=== PATIENT | female | born 1945 | race Caucasian/White ===

== ENCOUNTER → 2017-01-03 | Outpatient (CLI) | payer MEDICARE, OTHER | END | disposition home or self-care (01) | LOC: LAB.O 09:35 | PROVIDERS: ATTEND Nurse Practitioner Family | DX: I10 Essential (primary) hypertension (principal); I95.1 Orthostatic hypotension ==

== ENCOUNTER → 2017-05-07 | Outpatient (CLI) | payer MEDICARE, OTHER ==
[~2017-05-07] MED LIST: ALBUTEROL SULFATE 2.5 MG/3 ML VIAL NEB ONE
== END | disposition home or self-care (01) ==
LOC: RESP 13:49
PROVIDERS: ATTEND Nurse Practitioner Family
DX: J44.9 Chronic obstructive pulmonary disease, unspecified (principal)
CPT/HCPCS: 94060; J7611

== ENCOUNTER 2017-11-10 11:07 | Inpatient (IN) | payer MEDICARE, OTHER ==
[2017-11-10] MEDS ORDERED: LIDOCAINE 1% 50 ML VIAL INJ ONE (11:25)
[2017-11-10] MEDS ORDERED: POVIDONE IODINE 10 % 15 ML UD TOP ONE (11:34)
[2017-11-10] MEDS ORDERED: SULFA/TRIMETH 800/160 (DS) TAB 1 EA TAB PO ONE (12:07)
[2017-11-10] MEDS ORDERED: TETANUS,DIPHTHERIA,PERTUSSIS 1 EA SYG IM ONE (12:07)
[2017-11-10] MEDS ORDERED: SODIUM CHLORIDE 0.9% 1000ML 1,000 ML ONE (13:14)
[2017-11-10] MEDS ORDERED: SODIUM CHLORIDE 0.9% 1000ML 1,000 ML IVS ONE (13:15)
--- NOTE | 2017-11-10 13:25 | RAD ---
EXAM DESCRIPTION: Chest,2 Views CLINICAL HISTORY: 72 years Female, leukocytosis, recurrent falls COMPARISON: None available. TECHNIQUE: PA and lateral radiographs of the chest were obtained. FINDINGS: Trachea is midline.The cardiomediastinal silhouette is normal in size. The pulmonary vasculature is within normal limits. The lungs appear hyperinflated. Airspace opacities in the right lung base could represent pneumonia.No evidence of pleural effusions.No evidence of pneumothorax. IMPRESSION: Airspace opacities in the right lung base could represent pneumonia. Electronically signed by: Sofia Spaulding MD 11/10/2017 1:24 PM CDT
[2017-11-10] MEDS ORDERED: cefTRIAXone SODIUM 1 GM in SODIUM CHL 0.9% 50ML MIN-BAG+ 50 ML IVPB ONE (14:16)
[2017-11-10] MEDS ORDERED: AZITHROMYCIN IV 500 MG in SODIUM CHLORIDE 0.9% 250ML 250 ML IVPB ONE (14:16)
[2017-11-10] MEDS ORDERED: SODIUM CHL 0.9% 50ML MIN-BAG+ 50 ML IVPB ONE ×2 (14:21→23:43)
[2017-11-10] MEDS ORDERED: cefTRIAXone SODIUM 1 GM VIAL ONE (14:21)
--- NOTE | 2017-11-10 14:22 | ED.PDOC ---
History of Present Illness - General Chief Complaint: Trauma Stated Complaint: fall, laceration to chin Time Seen by Provider: 11/10/17 11:20 Source: patient Exam Limitations: no limitations - History of Present Illness Initial Comments: The patient is a 72-year-old female presenting to the emergency room secondary to multiple falls over the last couple of days. She does have a significant history of Parkinson's and her tremor and movement issues have gotten worse over the last week. The patient gets weak and somewhat dizzy when she goes to stand up. She had a fall this morning and spent a couple of hours on the floor because she was unable to get up. She sustained a 1 inch laceration underneath the chin at the time. In watching her here, the patient desaturates down into the low 80s just with conversation and sitting there. If she is allowed to rest and not talk her oxygen saturations will come back up to the low 90s. She does not appear to be in respiratory distress. She is not having any chest pain. No syncope or near syncope. No palpitations. Timing/Duration: unsure Severity: moderate Improving Factors: nothing Worsening Factors: nothing Associated Symptoms: loss of appetite, shortness of breath, weakness Allergies/Adverse Reactions: Allergies NO KNOWN ALLERGY Allergy (Unverified 07/27/14 09:21) Home Medications: Ambulatory Orders Aspirin [Baby Aspirin] 81 mg PO QD 07/25/14 Carbidopa-Levodopa [Carbidopa/Levodopa 25-100 mg] 1 tab PO BEDTIME 07/25/14 Lisinopril & Hydrochlorothiazi [Lisinopril/Hctz 20-25 mg] 1 tab PO DAILY Potassium Chloride Microencaps [Klor-Con M10] 10 meq PO DAILY 07/25/14 Pravastatin Sodium 40 mg PO DAILY 07/25/14 Review of Systems - Review of Systems Constitutional: States: malaise, weakness EENTM: States: no symptoms reported Respiratory: States: short of breath - mild Cardiology: States: no symptoms reported Gastrointestinal/Abdominal: States: no symptoms reported Genitourinary: States: no symptoms reported Musculoskeletal: States: other - soreness for multiple falls Skin: States: no symptoms reported - several bruises from the falls Neurological: States: see HPI Endocrine: States: no symptoms reported All other Systems: No Change from Baseline Past Medical History (General) - Patient Medical History Hx Stroke: No Hx Congestive Heart Failure: No Hx Diabetes: No Surgical History: no surgical history - Vaccination History Hx Tetanus, Diphtheria Vaccination: No Physical Exam - Physical Exam General Appearance: Alert, No apparent distress Eye Exam: bilateral normal Ears, Nose, Throat: normal ENT inspection, normal pharynx, other - there is a one-inch laceration to the chin. No pain over thetemporomandibular joints. No obvious deformity of the mandible. Dentures still fit well. Neck: full range of motion, supple Respiratory: no respiratory distress, no accessory muscle use, rales - right lower lobe primarily Cardiovascular/Chest: normal peripheral pulses, regular rate, rhythm, no edema Peripheral Pulses: radial,right: 2+, radial,left: 2+, dorsalis pedis,right: 2+, dorsalis pedis,left: 2+ Gastrointestinal/Abdominal: non tender, soft Rectal Exam: deferred Back Exam: normal inspection, no CVA tenderness, no vertebral tenderness Extremity: non-tender, normal inspection, no pedal edema, normal capillary refill Neurologic: ventilator specialist II-XII nml as tested, alert, normal mood/affect, oriented x 3, other - the patient does have significant tremor and movement issues related to her Parkinson's Skin Exam: normal color - bruising from falls and the one-inch laceration to her chin. Comments: Vital Signs - 24 hr 11/10/17 11/10/17 11/10/17 11:21 12:55 13:00 Temperature 98.3 F Pulse Rate [ 94 H 80 left hand] Respiratory 20 18 Rate Blood Pressure 123/64 139/78 153/88 [Left Arm] O2 Sat by Pulse 94 L 92 L Oximetry 11/10/17 11/10/17 11/10/17 13:06 13:07 13:08 Temperature 98.5 F Pulse Rate [ 80 left hand] Respiratory 18 Rate Blood Pressure 142/81 135/70 148/91 [Left Arm] O2 Sat by Pulse 92 L Oximetry 11/10/17 14:08 Temperature 98.3 F Pulse Rate [ 72 left hand] Respiratory 18 Rate Blood Pressure 145/75 [Left Arm] O2 Sat by Pulse 92 L Oximetry oxygen saturations drop into the low 80s with conversation or attempts at walking Progress - Progress Progress: 11/10/17 14:26 the patient is a 72-year-old female brought into the emergency room secondary to recurrent falls. The patient did spend 2 hours on the floor this morning. She does have a one-inch laceration to her chin. After risk and benefits of repair were explained the patient did agree to the repair. The wound was irrigated with 300 cc of saline with Betadine. 4 simple sutures of 3- 0 Ethilon were used for reapproximation. 6 cc of lidocaine without epinephrine were used for local anesthetic. The patient does have some significant generalized weakness and she has some significant hypoxia with any activity, dropping down as low as 82% on room air. Further workup shows that the likely source of her recent deterioration is a right lower lobe pneumonia. The patient is going to be brought in for treatment of that. She is being started on Rocephin and azithromycin. She is receiving supplemental oxygen. She will of course need to have her home medications continued for her Parkinson's. She was also moderately dehydrated upon arrival and has received a liter of IV fluids. Cardiac enzymes and a BMP have been sent for a baseline but also to help rule out any other etiology for her hypoxia. mild elevation of muscle enzymes are expected due to her falls. She is not having any chest pain or palpitations. She denies any significant history of CHF. The patient will be admitted for further treatment of her pneumonia. She will likely require some therapy in order to get back to a functional status. She does live alone. - Results/Orders Results/Orders: 11/10/17 12:55 Vital Signs-Tilt PRN the patient's systolic blood pressure drops by 18 points with standing. Chest x-ray is consistent with a right lower lobe pneumonia. 11/10/17 14:17 B-TYPE NATRIURETIC PEPTIDE/BNP Stat CARDIAC PANEL,ER Stat BLOOD CULTURE Stat Laboratory Results - last 24 hr 11/10/17 11/10/17 11/10/17 11:23 11:23 12:35 WBC 13.0 H RBC 4.25 Hgb 13.3 Hct 38.8 MCV 91.3 MCH 31.2 H MCHC 34.2 RDW 12.6 Plt Count 272 MPV 7.0 L Absolute Neuts (auto) 10.70 H Absolute Lymphs (auto) 1.20 Absolute Monos (auto) 1.00 H Absolute Eos (auto) 0.00 Absolute Basos (auto) 0.10 Neutrophils % 81.8 H Lymphocytes % 9.6 L Monocytes % 7.9 Eosinophils % 0.2 L Basophils % 0.5 Sodium 141 Potassium 3.4 L Chloride 104 Carbon Dioxide 23 Anion Gap 17.4 BUN 15 Creatinine 0.90 BUN/Creatinine Ratio 16.7 Random Glucose 128 H Serum Osmolality 283.7 Calcium 8.9 Total Bilirubin 1.7 H AST 42 ALT < 8 L Alkaline Phosphatase 70 Serum Total Protein 7.3 Albumin 4.1 Globulin 3.2 Albumin/Globulin Ratio 1.3 Urine Color Dk yellow H Urine Appearance Clear Urine pH 7.0 Ur Specific [place] >= 1.030 Urine Protein 30 Urine Glucose (UA) Negative Urine Ketones 15 H Urine Blood Trace-intact H Urine Nitrite Negative Urine Bilirubin Small H Urine Urobilinogen 1.0 Ur Leukocyte Esterase Negative Urine RBC 1-3 Urine WBC 0 Ur Epithelial Cells 1-3 Urine Bacteria Rare Departure - Departure Clinical Impression: Recurrent falls, Accidental laceration, History of inability to perform activities of daily living Pneumonia involving right lung Qualifiers: Pneumonia type: due to unspecified organism Lung location: lower lobe of lung Qualified Code(s): J18.1 - Lobar pneumonia, unspecified organism Disposition: Admit Patient Referrals: DOMINGO CHIN IV, [employer] [Primary Care Provider] - 1-2 Weeks Home Medications: Ambulatory Orders Aspirin [Baby Aspirin] 81 mg PO QD 07/25/14 Carbidopa-Levodopa [Carbidopa/Levodopa 25-100 mg] 1 tab PO BEDTIME 07/25/14 Lisinopril & Hydrochlorothiazi [Lisinopril/Hctz 20-25 mg] 1 tab PO DAILY Potassium Chloride Microencaps [Klor-Con M10] 10 meq PO DAILY 07/25/14 Pravastatin Sodium 40 mg PO DAILY 07/25/14 Decision To Admit - Decistion To Admit Decision to Admit Reason: Medical Nature Decision to Admit Date: 11/10/17 Decision to Admit Time: 14:26
--- NOTE | 2017-11-10 15:17 | HP ---
SUPERVISING PHYSICIAN: Bala Head MD CHIEF COMPLAINT: Fall. HISTORY OF PRESENT ILLNESS: Ms. Marsh is a 72-year-old, female patient who presented to the Emergency Room secondary to multiple falls over the last several days. She has a longstanding history of Parkinson's and tremors with movement issues that has gotten worse over the last week. The patient notices she is weak and sometimes gets dizzy when she stands up. She has fallen multiple times in the last week and this morning had spent several hours on the floor because she was unable to get up after a fall. With that fall, she had a 1 inch laceration to the chin. Initially in the Emergency Room , it was noted she was having significant desaturations into the 80s with any conversation and sitting at rest. She did show improvement with rest and oxygenation with nasal cannula. She was showing no respiratory distress and had no complaints of any chest pains. Laboratory studies showed she did have a leukocytosis of 13,500 with a left shift. Chemistries initially showed a mildly low potassium, but elevated CPK of 5784 with CK-MB 0.2%, but elevated troponin of 0.45 and slightly elevated BNP. Radiographic studies completed in the Emergency Room also showed she had concerns for airspace opacities in the right lung which could represent pneumonia. Dr. Head, Emergency Room physician, did a local on her chin and completed approximation of the chin laceration with sutures with no complications. She continued to show low O2 saturations, again in the 80s. Given the findings of right lower lobe pneumonia on x-ray with desaturations, she was started on treatment for community acquired pneumonia with Rocephin and azithromycin after blood cultures were completed. She was given 1 liter of fluids. It was noted after her cardiac enzymes showed an elevation that the patient was without any chest pains. She did again have significant elevation in her CPK which was felt to be secondary to her multiple falls in the past. Her EKG showed normal sinus rhythm with no ST or T wave changes. It was also noted she had positive tilt vital signs with her systolic blood pressure dropping 18 points with standing. Given the concerns for pneumonia and elevated troponin, the patient is going to be admitted to the Medical/Surgical Floor for continuation of treatment of community acquired pneumonia as well as serial cardiac enzymes and EKGs to further evaluate for any acute myocardial injury. There is also concern with the elevated CPK that the patient could possibly be in early stages of rhabdomyolysis. She was admitted in stable condition. PAST MEDICAL HISTORY: 1. Hypertension. 2. Parkinson's disease. PAST SURGICAL HISTORY: 1. Cholecystectomy. 2. Hysterectomy. 3. 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 4. Left foot surgery. HOME MEDICATIONS: 1. Sinemet 25/250 1 tablet t.i.d. 2. Symmetrel 50 mg b.i.d. 3. Lisinopril/hydrochlorothiazide 10/12.5 1 tablet daily as needed. ALLERGIES: NO KNOWN DRUG ALLERGIES. FAMILY HISTORY: Both mother and father from sudden cardiac . SOCIAL HISTORY: The patient is , disabled. She lives in [place] by herself. She denies ever smoking and does not drink alcohol or use illicit drugs. REVIEW OF SYSTEMS: CONSTITUTIONAL: As noted in history of present illness, increasing weakness and general malaise with multiple falls. No reported unintentional weight loss , fevers or chills. HEENT: Denies headaches, sore throat, nasal congestion or earaches. RESPIRATORY: Shortness of breath at rest. Denies cough or wheezing. CARDIOVASCULAR: Denies chest pain, palpitations, edema or syncopal episodes. GASTROINTESTINAL: No reported nausea or vomiting, diarrhea, constipation. She notes that she has had some kind of abdominal pains over the last year that come and go. GENITOURINARY: Denies dysuria, hematuria or other urinary symptoms. MUSCULOSKELETAL: As noted in history of present illness, multiple falls with multiple bruises on all extremities at various stages of healing. NEUROLOGIC: As noted in history of present illness, history of Parkinson's disease with ataxia and difficulty with ambulation resulting in multiple falls, but denies any syncopal episodes, seizures. PHYSICAL EXAMINATION: VITAL SIGNS: Temperature 98.6. Pulse 94. Blood pressure 123/64. Respirations 20. Showing desaturations into the mid-80s at rest, improved with nasal cannula. Weight 51.5 kg. GENERAL: The patient is very unkept. She is alert, appears to be in no acute distress. HEENT: Tympanic membranes clear bilaterally. Oropharynx is pink, moist without any lesions. There was a 1 inch laceration of the chin with sutures in place. No other deformities to the mandible or face. Dentures were in placed. NECK: Supple, nontender with full range of motion. RESPIRATORY: Lungs clear n the left, just slightly diminished towards the bases with very faint rhonchi, rale heard on the right lower lobe. CARDIOVASCULAR: Regular rate and rhythm without any appreciable murmurs, gallops, or rubs. ABDOMEN: Soft, nontender. Positive bowel sounds. EXTREMITIES: There is no cyanosis, clubbing or edema. NEUROLOGIC: The patient is alert and oriented times three. Cranial nerves II- XII are grossly intact. She does have a notable tremor and movement related to her Parkinson's. No sensory or motor focal deficits are noted. INTEGUMENTARY: She has various stages of healing bruises noted to the extremities as well as the 1 inch laceration to the her chin with sutures in place. LABORATORY: White count does show a leukocytosis of 13,000 with hemoglobin 13.3 , hematocrit 30.8, platelet count 272,000. Differential shows a left shift. Coagulation studies show slightly elevated PT 12.9 with slightly elevated PTT of 23.0, but INR 1.1. Chemistry showed just a mild hypokalemia of 3.4 potassium. Sodium normal at 141. Bilirubin slightly elevated at 1.7, magnesium 1.9. All other liver functions were within normal limits. CPK was elevated at 5,784 with elevation of her CK-MB at 11.8 with CK-MB percentage of 0.2 troponin initially was 0.45 with slightly elevated BNP of 217. Urinalysis showed 15 ketones, trace amount of blood, small amount of bilirubin. Microscopic was within normal limits. MICROBIOLOGY: Sputum culture pending. Blood culture pending. RADIOLOGY: Chest x-ray in the Emergency Department per radiologic interpretation of a two-view chest showed airspace opacities in the right lung base which could represent pneumonia. 12-lead EKG showed a normal sinus rhythm with no notable ST or T wave inversions with no comparisons available. ASSESSMENT: 1. Community acquired pneumonia involving the right lower lobe with a leukocytosis. 2. History of multiple falls from complications of Parkinson's treatment and ongoing disease with an acute laceration to the chin after a same level fall. 3. Elevated CPK with elevated troponin, felt to be secondary to chronic falls with elevated troponin secondary to underlying pneumonia with the patient reporting no chest pains and EKGs without any acute changes. 4. Rhabdomyolysis secondary to multiple falls with elevated CPK greater than 5000. 5. Electrolyte imbalance with mild hypokalemia, likely secondary to diuretic administration with hydrochlorothiazide. 6. Hypertension. 7. Parkinson's disease with complications due to current medication treatment and complicated by multiple falls. PLAN: The patient will be admitted to the Medical/Surgical Floor for initiation of treatment of community acquired pneumonia. Blood cultures were completed. Lactic acid was not drawn, but she did have a significantly elevated CPK. She was started on azithromycin and Rocephin and sputum culture is pending. She will be on aggressive pulmonary hygiene with q.i.d. nebulizer treatments and chest percussive therapy. She was given 1 liter of fluids in the Emergency Room. This will be followed with continued fluids initially with half normal saline with 20 of potassium with concerns for developing rhabdomyolysis and close monitoring of her electrolytes and CPK levels. We may need to increase her fluid, but we will watch her output closely. We will repeat cardiac enzymes q.6h. times 2 as well as she will be on cardiac telemetry. She will be on DVT prophylaxis per protocol and we will anticipate her length of stay to be at least 2 to 3 days. We will resume her home medications as appropriate once those have been updated and verified. Until clinically stable and improved, we will continue to monitor the patient closely and treat appropriately until discharge. When able to be discharged, she will followup in the outpatient setting and will need followup with her primary care provider, Luis Pryor, and her neurologist, Dr. Bonner. #[id number] [facility]
[2017-11-10] MEDS ORDERED: AZITHROMYCIN IV 500 MG VIAL IVPB ONE (15:19)
[2017-11-10] MEDS ORDERED: SODIUM CHLORIDE 0.9% 250ML 250 ML ONE (15:20)
--- NOTE | 2017-11-10 16:42 | PCM.CORE ---
Physician DVT/VTE - Nurse DVT Assessment & Total Each Risk Factor Represents 2 Points: Age 60-74 Each Risk Factor Represents 1 Point: Medical PT at Bed Rest Each Risk Factor is 1 Point: Serious Lung disease (pnemonia <1month, COPD, emphysema,etc) DVT Assessment Score: 4 - 5 or more Very High Risk Treatments: Early Ambulation *, Sequential Compression Device Pharmacological: Enoxaparin 40mg SQ Daily
[2017-11-10] MEDS: IV SET AND CAP CHANGE INJ INJ SCH (16:57)
[2017-11-10] MEDS: KCL 20MEQ/0.45% NS 1,000 ML IVS PRN (17:13)
[2017-11-10] MEDS: IPRATROPIUM/ALBUTEROL 3 ML VIAL INH SCH (19:57)
[2017-11-10] MEDS: ACETAMINOPHEN 325 MG TAB PO PRN (21:03)
[2017-11-10] MEDS: guaiFENesin ER TAB 600 MG TAB PO SCH (21:03)
[2017-11-10] MEDS: ENOXAPARIN SODIUM 30 MG/0.3 ML SYG SUBCU SCH (21:04)
[2017-11-10] MEDS: ALBUTEROL SULFATE 2.5 MG/3 ML VIAL NEB PRN (22:02)
--- NOTE | 2017-11-10 22:32 | CT ---
EXAM DESCRIPTION: CTA Chest CLINICAL HISTORY: 72 years, Female, Tachy; hypoxic; RLL pneumonia; elvated CK, Trop COMPARISON: Chest radiograph from earlier same day at 12:50 PM TECHNIQUE: Axial images through the chest were performed after the administration of intravenous contrast using a pulmonary embolus protocol. MIPS were performed. This exam was performed according to our departmental dose-optimization program which includes use of Automated Exposure Control, adjustment of the mA and/or kV according to patient size and/or use of iterative reconstruction technique. FINDINGS: No pulmonary embolus is identified. Normal caliber aorta without dissection. Atherosclerotic vascular calcifications. No pericardial effusion. Small bilateral pleural effusions with consolidative changes involving the lower lobes and left upper lobe which represent atelectasis and/or pneumonia. Nodular density in the left upper lobe posteriorly image 39 series 2 suspicious for focal nodular lesion. Increased soft tissue in the subcarinal region, cannot exclude a focal lesion/enlarged lymph node. No pneumothorax. Patent central airway with diffuse peribronchial thickening which may be due to chronic inflammation.. Soft tissues are unremarkable. No acute osseous findings. No acute abnormality within the visualized upper abdomen. IMPRESSION: * No pulmonary embolus. * Small bilateral pleural effusions with consolidative changes involving the lower lobes and left upper lobe which represent atelectasis and/or pneumonia. * Nodular density in the left upper lobe suspicious for focal lesion. If no prior CT available for comparison consider further evaluation with CT and/or biopsy. * diffuse peribronchial thickening which may be due to chronic inflammation. * Increased soft tissue in the subcarinal region, cannot exclude a focal lesion/enlarged lymph node. Follow-up is recommended. Electronically signed by: Andrea Madrigal MD 11/10/2017 10:30 PM CDT
[2017-11-10] MEDS ORDERED: methylPREDNISolone SODIUM SUC 125 MG/2 ML VIAL IV ONE (23:00)
[2017-11-10] MEDS ORDERED: VANCOMYCIN HCL INJ 1,000 MG VIAL IVPB ONE (23:20)
[2017-11-10] MEDS: SODIUM CHLORIDE 0.9% (FLUSH) 10 ML SYG IV PRN ×2 (23:21→23:56)
[2017-11-10] MEDS ORDERED: levoFLOXacin 500MG IV 500 MG in PREMIX BAG 1 BAG IVPB SCH (23:30)
[2017-11-10] MEDS ORDERED: levoFLOXacin 500MG IV 100 ML IVPB ONE (23:42)
[2017-11-10] MEDS ORDERED: MEROPENEM 500 MG VIAL IVPB ONE (23:42)
[2017-11-10] MEDS: MEROPENEM 500 MG in SODIUM CHL 0.9% 50ML MIN-BAG+ 50 ML IVPB SCH (23:56)
[2017-11-11] MEDS ORDERED: METOPROLOL TARTRATE 25 MG TAB PO ONE (00:07)
[2017-11-11] MEDS ORDERED: VANCOMYCIN HCL INJ 500 MG VIAL ONE (00:36)
[2017-11-11] MEDS ORDERED: SODIUM CHLORIDE 0.9% 250ML 250 ML ONE ×2 (00:36→20:35)
[2017-11-11] MEDS ORDERED: cefTRIAXone SODIUM 1 GM in SODIUM CHL 0.9% 50ML MIN-BAG+ 50 ML IVPB SCH (02:00)
[2017-11-11] MEDS ORDERED: SODIUM CHLORIDE 0.9% 1000ML 1,000 ML IVS ONE (03:53)
[2017-11-11] MEDS ORDERED: MEROPENEM 500 MG VIAL IVPB ONE (06:58)
[2017-11-11] MEDS ORDERED: SODIUM CHL 0.9% 50ML MIN-BAG+ 50 ML IVPB ONE ×2 (06:58→20:36)
--- NOTE | 2017-11-11 08:05 | RAD ---
EXAM DESCRIPTION: Chest,1 View CLINICAL HISTORY: Pneumonia FINDINGS/ IMPRESSION: Comparison 11/10/2017 Left perihilar and lower lobe pneumonia has developed in the interval. Lungs are hyperinflated consistent with COPD There is a left upper lobe nodule which is consistent with lung carcinoma seen on the previous CT and also visible on the most recent comparison radiograph. This finding was discussed with Dr. Gonzales Electronically signed by: Bala Veliz MD 11/11/2017 8:04 AM CDT
[2017-11-11] MEDS: IPRATROPIUM/ALBUTEROL 3 ML VIAL INH SCH ×4 (08:37→20:40)
[2017-11-11] MEDS: MEROPENEM 500 MG in SODIUM CHL 0.9% 50ML MIN-BAG+ 50 ML IVPB SCH (08:58)
[2017-11-11] MEDS: guaiFENesin ER TAB 600 MG TAB PO SCH ×2 (08:59→21:22)
[2017-11-11] MEDS: BIFIDOBACTERIUM INFANTIS 4 MG CAP PO SCH (08:59)
[2017-11-11] MEDS ORDERED: VANCOMYCIN PER PHARMACY INJ SCH (09:00)
[2017-11-11] MEDS ORDERED: AZITHROMYCIN IV 500 MG in SODIUM CHLORIDE 0.9% 250ML 250 ML IVPB SCH (09:00)
[2017-11-11] MEDS: ENOXAPARIN SODIUM 30 MG/0.3 ML SYG SUBCU SCH (09:02)
[2017-11-11] MEDS ORDERED: PANTOPRAZOLE SODIUM IV 40 MG VIAL IV SCH (10:00)
[2017-11-11] MEDS: KCL 20MEQ/0.45% NS 1,000 ML IVS PRN (12:17)
[2017-11-11] MEDS: CARBIDOPA PO SCH ×2 (15:15→21:20)
[2017-11-11] MEDS: LEVODOPA PO SCH ×2 (15:15→21:20)
--- NOTE | 2017-11-11 15:42 | PN ---
SUPERVISING PHYSICIAN: Bala Head MD DATE: 11/11/17 SUBJECTIVE: The patient constipation to be stable. She has had no chest pains. She did have a fever last night after which she developed a rapid heart rate in the 130s to 140s. I was called by the nurses regarding her heart rate and after further examination and noting the elevated temperature, it was felt that she was acutely declining. An ABG was completing with findings indicating possible concerns for PE and PE study was completed. The CT of the chest was negative. Again, the patient was without any chest pains and reported shortness of breath. She was having difficulty maintaining O2 sats in the high 80s even with a Ventimask. After discussion of the patient's condition and concern for worsening pneumonia and with discussion with Dr. Head, Emergency Room physician in regard to higher level of care and further treatment in regard to concerns for possible myocardial infarction as well, the patient voiced she did not want any heroic efforts and wanted to continue with treatment here and change her resuscitation status to Do Not Resuscitate. That paperwork was signed and, again, the patient was informed of her decision and the concern that she was showing decline in her status. The patient voiced understanding and again continued with reassurance that she wanted to be treated here, but did not want to be intubated or any other heroic efforts other than what we could do here. The patient again was showing good mentation , showing no acute distress. She did get a dose of Cardizem 10 mg twice adapted 25 mg metoprolol with good response and converting to a sinus rhythm. Given her condition change, decision was to increase the approach to antibiotic therapy, to discontinue the azithromycin and Rocephin and add meropenem, vancomycin and Levaquin. This morning, the patient is in good spirits and again showing no signs of distress, but continues to have difficulty maintaining O2 sats in the high 80s even on the Ventimask. She was afebrile after the initial fever last night and remains in a sinus rhythm. A chest x- ray this morning was completed and per radiologic interpretation compared to the CT findings last night, the radiologist called directly reporting that the lesion noted on the CT last night and with comparison to the radiology study morning with a high suspicion for a lung carcinoma in the left upper lobe. I discussed the findings with the patient and encouraged her to seek a higher level of care in regard to need for further diagnosis and treatment of the concern for lung cancer with oncology. She voiced that she understood and at this point would like to be given time to think about it and discuss plans with her family, but agrees with continuation of current plan of care in regards to antibiotic therapy. OBJECTIVE: VITAL SIGNS: T-max was 101.9. Heart rate last night was in the 130s and after treatment with Cardizem and metoprolol, converted to a sinus rhythm and this morning, heart rate is 86 with blood pressure 113/70. Respirations 20. She continues to show low saturations on a Ventimask at 55% anywhere from 88 to 90% at rest. Ulndberg catheter was placed for strict I&Os and per review, she shows to be on the positive side at 2348 with 3448 in, 1100 out. Weight 51.9 kg. CHEST: Lung sounds are heard throughout, but slightly diminished towards the bases. There is just a very faint notable rhonchi bilaterally in the mid lung field, but no wheezing or rhonchi. HEART: Regular rate and rhythm this morning with a sinus rhythm on the monitor. ABDOMEN: Soft, nontender. Positive bowel sounds. EXTREMITIES: No cyanosis, clubbing or edema. NEUROLOGIC: Alert and oriented times three. She remains with a tremor related to her Parkinson's. LABORATORY: White count is improved and has gone down to 7,000, hemoglobin 12.0 , hematocrit 34.9, platelet count 174,000. Differential continues to show a left shift although it is improving. Blood gas analysis last night showed pH 7.48, PCO2 31, PO2 51, bicarb 22.3, saturation 88.1% on nasal cannula at 6 liters. Chemistries last night after acute changes showed just a mildly low potassium at 3.4. Repeat lactic acid with the fever and initiation of different antibiotics was within normal limits at 1.0. Kidney function remains stable with BUN 13, creatinine 0.85. This morning, potassium is normalized at 3.9. Liver functions show slight elevation of AST up to 103 with bilirubin 1.1. ALT and alkaline phosphatase remain normal. Cardiac enzymes last night showed an increase in the troponin up to 1.61 as well as increase in the CK up to 10,282. This morning, troponin again shows continuation of elevation at 2.13 with CK now returned to baseline at 7,827. Urinalysis after placement of Lundberg last night just showed 15 ketones and small amount of blood. Otherwise, was within normal limits. MICROBIOLOGY: Blood cultures are pending and negative as of current date. RADIOLOGY: CT of the chest last night with concerns for possible PE and per radiologic interpretation, there was no pulmonary embolism noted. There was note of small bilateral pleural effusion with consolidative changes involving the lower lobes and left upper lobe which could represent atelectasis or pneumonia. There was also note of a nodular density in the left upper lobe suspicious for focal lesion as well as diffuse peribronchial thickening which may be due to chronic inflammation and increased soft tissue in the subcarinal region. Cannot exclude a focal lesion or enlarged lymph node. Repeat chest x- ray this morning with a verbal report from Dr. Veliz, radiologist, there was note of now left perihilar, left lower lobe pneumonia developing in the interval with lungs hyperinflated consistent with chronic obstructive pulmonary disease and left upper lobe nodule that is consistent with a lung carcinoma that was seen on previous CT visible on the most recent comparison radiographic studies. ASSESSMENT: 1. Acute exacerbation of chronic obstructive pulmonary disease with community acquired pneumonia bilaterally with the patient being hypoxic as well as having hypoxemia on ABGs despite high-flow oxygen supplementation on a Ventimask. ABGs indicated a respiratory alkalosis, again, with no signs of PE on CT of the chest, felt to be secondary to progressive pneumonia. 2. Elevated CPK with concerns for rhabdomyolysis secondary to recent falls and extended length of time on the hard floor with CPK now showing a response to IV fluids. 3. Elevated troponin with no acute changes on EKG currently with the patient showing an acute episode of tachycardia last night, but responding well to Cardizem and metoprolol with concerns for a non-ST elevation myocardial infarction with the the patient without chest pains and currently on Lovenox 1 mg/kg. This could also also be a component of the developing pneumonia and persistent hypoxemia. 4. Left upper lobe nodule noted on CT and radiographic studies consistent per radiology with a lung carcinoma, requiring further workup once the patient is stable. 5. History of multiple falls likely secondary to persistent hypoxemia and exacerbated by her Parkinson's. 6. Laceration to the chin with good closure in the Emergency Room secondary to a same level fall. 7. Electrolyte imbalance initially on admission with hypokalemia, resolving with fluids. 8. Hypertension. 9. Parkinson's disease with complications due to current medication treatment and complicated by multiple falls. PLAN: The patient last night was given Cardizem and metoprolol and has been in normal sinus rhythm since. EKG shows continued sinus rhythm with no ST changes and the patient remains without any chest pain. I did discuss the elevation in troponins and the concern that she had had a non-ST elevation myocardial infarction as well as the findings of the CT with concerns for left upper lobe carcinoma of the lung. The patient after a long discussion voiced at this point she would like to continue with treatment here for the underlying pneumonia and be allowed time to think as far as future plans on pursuing further evaluation and treatment for the concern for the left lung cancer. The patient is going to talk to her son today. Again, I encouraged her if she is wanting to aggressively manage the findings, we need to transfer her to [facility] so she can have consultation with cardiology, pulmonology and oncology. The patient is adamant that she wants no heroic efforts. Again, we will let medical staff know the determination on further treatment in regard to the lung mass. I went ahead and gave her a dose of Solu- Medrol last night although the patient is not showing any signs of severe sepsis and remains hemodynamically stable. She continues IV fluids again for concerns for rhabdomyolysis and close monitoring of her renal function. Given that showing a significant and acutely worsening x-rays and CT findings last night, I did start her on meropenem, Levaquin and vancomycin. Vancomycin will be per pharmacy protocol and we will target antibiotic therapy per renal function as well as any findings on blood cultures or sputum cultures that we obtained. We will repeat cardiac enzymes again later today. We will again visit with the patient regarding further plans of treatment. Until then, we will continue to monitor the patient closely and treat appropriately. All the findings and current plan of care have been discussed at length with Dr. Head , supervising physician, and he is available for consultation. #[id number] [facility]
[2017-11-11] MEDS ORDERED: HYDROcodone 5MG/APAP 325MG 1 EA TAB PO PRN (17:50)
[2017-11-11] MEDS ORDERED: VANCOMYCIN HCL INJ 1,000 MG VIAL IVPB ONE (20:36)
[2017-11-11] MEDS ORDERED: MEROPENEM 1 GM VIAL IVPB ONE (20:36)
[2017-11-11] MEDS: ENOXAPARIN SODIUM 60 MG/0.6 ML SYG SUBCU SCH (21:21)
[2017-11-11] MEDS: MEROPENEM 1 GM in SODIUM CHL 0.9% 50ML MIN-BAG+ 50 ML IVPB SCH (21:22)
[2017-11-11] MEDS: AMANTADINE HCL 100 MG CAP PO SCH (21:22)
[2017-11-11] MEDS: VANCOMYCIN HCL INJ 1,000 MG in SODIUM CHLORIDE 0.9% 250ML 250 ML IVPB SCH (22:14)
[2017-11-11] MEDS: METOPROLOL TARTRATE 25 MG TAB PO SCH (22:15)
[2017-11-11] MEDS ORDERED: levoFLOXacin 250MG IV 50 ML IVPB ONE (23:50)
[2017-11-11] MEDS: levoFLOXacin 250MG IV 250 MG in PREMIX BAG 1 BAG IVPB SCH (23:51)
[2017-11-12] MEDS: ACETAMINOPHEN 325 MG TAB PO PRN (01:30)
[2017-11-12] MEDS ORDERED: methylPREDNISolone SODIUM SUC 125 MG/2 ML VIAL IV ONE (01:53)
[2017-11-12] MEDS: ALBUTEROL SULFATE 2.5 MG/3 ML VIAL NEB PRN (02:38)
[2017-11-12] MEDS ORDERED: IBUPROFEN 400 MG TAB PO PRN (02:49)
[2017-11-12] MEDS: KCL 20MEQ/0.45% NS 1,000 ML IVS PRN ×2 (03:39→15:08)
[2017-11-12] MEDS: PANTOPRAZOLE SODIUM TAB 40 MG PO SCH (06:07)
[2017-11-12] MEDS ORDERED: MEROPENEM 1 GM VIAL IVPB ONE ×3 (07:03→20:40)
[2017-11-12] MEDS ORDERED: SODIUM CHL 0.9% 50ML MIN-BAG+ 0 ML IVPB ONE (07:03)
[2017-11-12] MEDS: METOPROLOL TARTRATE 25 MG TAB PO SCH ×2 (07:34→17:13)
--- NOTE | 2017-11-12 07:43 | RAD ---
EXAM DESCRIPTION: Chest,2 Views CLINICAL HISTORY: pneumonia; left upper lobe mass COMPARISON: November 11, 2017 FINDINGS: Two-view chest x-ray shows enlargement of the cardiac silhouette without pulmonary vascular congestion. Diffuse interstitial alveolar changes throughout the left perihilar and upper lobe region are again seen with increasing density in the left lower lobe silhouetting the left hemidiaphragm. Mild increased interstitial markings in the posterior right lower lobe are seen. There is blunting of the costophrenic angles left greater than right. Mild disc degenerative changes of the spine are seen. IMPRESSION: Probable pneumonia and/or atelectasis in the left perihilar to upper lobe region. Increasing density in the left lower lobe retrocardiac region suggests pleural effusion and/or pneumonia versus atelectasis. Continued follow-up until resolution is recommended to exclude neoplastic process. Mild increased interstitial markings are also seen in the right lower lobe region. Electronically signed by: Michael Melgar MD 11/12/2017 7:42 AM CDT
[2017-11-12] MEDS: BIFIDOBACTERIUM INFANTIS 4 MG CAP PO SCH (08:18)
[2017-11-12] MEDS: guaiFENesin ER TAB 600 MG TAB PO SCH ×2 (08:18→21:17)
[2017-11-12] MEDS: CARBIDOPA PO SCH ×3 (08:19→21:16)
[2017-11-12] MEDS: LEVODOPA PO SCH ×3 (08:19→21:16)
[2017-11-12] MEDS: AMANTADINE HCL 100 MG CAP PO SCH ×2 (08:19→21:18)
[2017-11-12] MEDS: ENOXAPARIN SODIUM 60 MG/0.6 ML SYG SUBCU SCH ×2 (08:20→21:16)
[2017-11-12] MEDS: MEROPENEM 1 GM in SODIUM CHL 0.9% 50ML MIN-BAG+ 50 ML IVPB SCH ×2 (08:30→21:17)
[2017-11-12] MEDS: IPRATROPIUM/ALBUTEROL 3 ML VIAL INH SCH ×4 (08:50→20:23)
[2017-11-12] MEDS: methylPREDNISolone SODIUM SUC 40 MG/ML VIAL IV SCH ×3 (09:27→22:16)
--- NOTE | 2017-11-12 14:08 | PN ---
SUPERVISING PHYSICIAN: Bala Head MD DATE: 11/12/17 SUBJECTIVE: Once again, the patient ran a fever last night and became significant and somewhat tachycardic, resulting in a significant decrease in her O2 saturations. She responded well to high-flow nasal cannula and breathing treatments. I discussed with her utilizing CPAP which she is in agreement with. A trial this morning showed that she was responding well with the saturations actually going up into the mid-90s. She has not had any diarrhea, nausea or vomiting and is without any chest pains. The patient was able to work with physical therapy yesterday with oxygen and was ambulating up and down the banerjee although maintaining mid-80 saturations. Again I discussed with her possible transfer to [facility] [place] for further evaluation of the CT findings and x-rays for possible lung cancer. At this point, she wishes not to be transferred and remain Do Not Resuscitate. I also discussed with her maybe talking to her son, but she is not ready as of yet to talk to him and she does not want us to call him. Of note, she keeps telling me she has had some abdominal pains off and on that she describes more down in her pelvic area. It is not constant, but it has been there for several months and certainly would warrant possible CT of the abdomen once she is able to go to CT for further evaluation given the findings on her x-ray. OBJECTIVE: VITAL SIGNS: T-max was 101.9. Blood pressure 149/84. Heart rate 80. Respirations last night 25 with some retractions and accessory muscles. This morning after CPAP, the patient's respirations are 20 to 22 with no signs of distress and showing good response on SPO2. Prior to the CPAP on high flow, she was showing 85% at 15 liters. After CPAP, she was in the mid-90s at 92 to 94% with 50% FIO2. I&Os show a positive balance of 1277 with 3502 in, 2225 out. Weight 51.9 kg. GENERAL: The patient is resting comfortably. She does show some mild respiratory distress prior to CPAP, although the patient says she does not feel distressed, she was showing some retractions and some accessory muscle usage. She is alert. She seems to be in better spirits today. CHEST: Lungs with good breath sounds throughout, slightly diminished towards the bases with a very faint rhonchi heart to the left upper lobe, more prominent on the posterior aspect. HEART: Regular rate and rhythm. ABDOMEN: Soft, nontender. Positive bowel sounds. EXTREMITIES: No cyanosis, clubbing or edema. NEUROLOGIC: Alert and oriented times three. LABORATORY: White count has gone up slightly to 11.9, however, she has been started on a round of corticosteroids. Hemoglobin and hematocrit remain stable at 12.5 and 36.3 respectively with platelet count 205,000. Differential today continues to show a left shift. Blood gas analysis last night showed stable pH at 7.48 with PCO2 down to 29 and PO2 decreased somewhat to 46, saturation 84% which is slightly worse than she when she came in at 88%. After CPAP, saturation was 94%. Chemistries this morning show normal electrolytes with BUN 17, creatinine 1.0, calcium 8.1. Liver functions show slightly elevated AST, but improved from previous days. It is down to 82. ALT and alkaline phosphatase remain normal. CK continues to show trending towards baseline normal levels as well as the troponin which is now to 1.48. MICROBIOLOGY: Sputum culture was never collected. Blood cultures, four sets, remain negative as of current date. RADIOLOGY: Repeat chest x-ray this morning per radiologic interpretation shows probable pneumonia and/or atelectasis in the left perihilar to upper lobe region with increased density in the left lower lobe, retrocardiac region to suggest pleural effusion and/or pneumonia versus atelectasis. Recommend continued followup to resolution and to exclude neoplastic process. There is note of mildly increased interstitial markings on the right lobe region. ASSESSMENT: 1. Exacerbation of chronic obstructive pulmonary disease with community acquired pneumonia bilaterally, more prominent on left than right, showing very slow clinical improvement with antibiotics to include meropenem, vancomycin and Levaquin, requiring ongoing aggressive ventilatory support with non-invasive ventilation with CPAP pressure support as well as aggressive pulmonary hygiene. 2. Elevated CPK secondary to rhabdomyolysis due to recent falls and extended length of time on the floor with CPK now showing continuation of returning to baseline after IV fluids. 3. Non-ST elevation myocardial infarction with elevated troponin on admission with the patient without any chest pains or any acute findings on EKG and troponin now returning to normal baseline status with the patient having been started on beta blanche to include metoprolol 25 mg b.i.d. 4. Left upper lobe nodule, new finding on CT and radiographic studies consistent per radiology with a lung carcinoma and neoplastic process, continuing to require further workup once the patient is stable. 5. History of Parkinson's resulting in multiple falls also exacerbated by persistent hypoxemia. 6. Laceration to the chin due to same level fall with good closure in the Emergency Room. 7. Electrolyte imbalance on admission with hypokalemia, now normalized with fluids. 8. Hypertension, stable with initiation of beta blockers with metoprolol. 9. Parkinson's disease with complications due to current medication treatment and complicated by multiple falls also contributing to some complications to current ongoing respiratory efforts due to persistent muscle tremors. PLAN: The patient is now on CPAP and is tolerating well. We will continue with this as we can titrate her FIO2 down which is still on 50%. She has actually been holding at 92% after initiation of CPAP. I have ordered some Xanax for her to prevent any acute anxiety issues. She has been started on Protonix with the corticosteroid administration. She remains on very aggressive management with antibiotics to include meropenem, Levaquin and vancomycin. Certainly, as she shows good clinical improvement, it would warrant deescalating her medications. At this point, we will continue with those as she continues to show very slow improvement. Continuation of discussion of further plans of addressing the left upper lobe mass is warranted. However, the patient continues to express that she does not want to go anywhere except [facility]. I did explain to her that there is no real specialty for her findings and oncology that comes to [facility]. She understands this and will continue to contemplate further management and plans to address the findings. Given that she has had some abdominal pains over the last several months and possibly longer that are intermittent, I am going to go ahead and do a CT of her abdomen with contrast once she is [address] of the chest in efforts to rule out a possible etiology of apparent lung mass and other acute findings. We will continue to monitor blood cultures and continue with antibiotic therapy until the patient shows good clinical improvement. Until then, we will continue to monitor the patient closely and treat appropriately. #[id number] [facility]
[2017-11-12] MEDS: ALPRAZolam 0.25 MG TAB PO PRN (18:37)
[2017-11-12] MEDS ORDERED: SODIUM CHLORIDE 0.9% 250ML 0 ML ONE (19:24)
[2017-11-12] MEDS ORDERED: SODIUM CHL 0.9% 50ML MIN-BAG+ 50 ML IVPB ONE ×2 (19:25→20:39)
[2017-11-12] MEDS ORDERED: levoFLOXacin 250MG IV 50 ML IVPB ONE (19:25)
[2017-11-12] MEDS ORDERED: VANCOMYCIN HCL INJ 1,000 MG VIAL IVPB ONE ×2 (19:25→20:40)
[2017-11-12] MEDS ORDERED: SODIUM CHLORIDE 0.9% 250ML 250 ML ONE (20:39)
[2017-11-12] MEDS: VANCOMYCIN HCL INJ 1,000 MG in SODIUM CHLORIDE 0.9% 250ML 250 ML IVPB SCH (22:16)
[2017-11-13] MEDS: levoFLOXacin 250MG IV 250 MG in PREMIX BAG 1 BAG IVPB SCH ×2 (00:30→23:28)
[2017-11-13] MEDS: ALPRAZolam 0.25 MG TAB PO PRN (02:50)
[2017-11-13] MEDS: PANTOPRAZOLE SODIUM TAB 40 MG PO SCH (06:32)
[2017-11-13] MEDS: KCL 20MEQ/0.45% NS 1,000 ML IVS PRN ×2 (07:23→22:00)
--- NOTE | 2017-11-13 07:50 | RAD ---
EXAM DESCRIPTION: Chest,2 Views CLINICAL HISTORY: oneumonia;MAMIE mass COMPARISON: CT angiogram of the thorax November 10, 2017. Chest x-ray November 12, 2017. FINDINGS: Lateral views of the thorax. Persistent left lower lung pneumonia with trace effusion is stable in appearance. Trace right-sided pleural effusion persists. The left upper lobe solid nodule seen on comparison CT is not evident with this modality. Heart and mediastinum remain stable. Osseous structures are stable. IMPRESSION: Stable chest. Electronically signed by: Chris Meza MD 11/13/2017 7:49 AM CDT
[2017-11-13] MEDS ORDERED: SODIUM CHL 0.9% 50ML MIN-BAG+ 50 ML IVPB ONE ×2 (07:53→19:38)
[2017-11-13] MEDS ORDERED: MEROPENEM 1 GM VIAL IVPB ONE ×2 (07:54→19:39)
[2017-11-13] MEDS: METOPROLOL TARTRATE 25 MG TAB PO SCH ×2 (08:09→17:48)
[2017-11-13] MEDS: IPRATROPIUM/ALBUTEROL 3 ML VIAL INH SCH ×4 (08:18→20:57)
[2017-11-13] MEDS: MEROPENEM 1 GM in SODIUM CHL 0.9% 50ML MIN-BAG+ 50 ML IVPB SCH ×2 (09:24→20:36)
[2017-11-13] MEDS: ENOXAPARIN SODIUM 60 MG/0.6 ML SYG SUBCU SCH ×2 (09:26→20:32)
[2017-11-13] MEDS: ASPIRIN (CHEWABLE) 81 MG TAB PO SCH (09:27)
[2017-11-13] MEDS: BIFIDOBACTERIUM INFANTIS 4 MG CAP PO SCH (09:27)
[2017-11-13] MEDS: guaiFENesin ER TAB 600 MG TAB PO SCH ×2 (09:27→20:31)
[2017-11-13] MEDS: AMANTADINE HCL 100 MG CAP PO SCH ×2 (09:28→20:34)
[2017-11-13] MEDS: CARBIDOPA PO SCH ×3 (09:28→20:37)
[2017-11-13] MEDS: LEVODOPA PO SCH ×3 (09:28→20:37)
[2017-11-13] MEDS: predniSONE 20 MG TAB PO SCH (11:44)
--- NOTE | 2017-11-13 11:47 | PN ---
SUPERVISING PHYSICIAN: Bala Head MD DATE: 11/13/17 SUBJECTIVE: The patient is sitting up in her hospital bed. She continues complaints of shortness of breath although she has had CPAP overnight. She had a very difficult time with it as she said the pressure hurt her face and she would much rather have the high-flow oxygen. We also discussed that we would get oxygen supplementation at home. She continues to say that she does not want aggressive treatment in the hospital and that she will decide her treatment with Luis Pryor when she sees him after she is discharged from the hospital. Otherwise, no nausea, vomiting, diarrhea or constipation. OBJECTIVE: VITAL SIGNS: Afebrile. Heart rate 79. Blood pressure 160/88. Respiratory rate 20. O2 saturation 94% on high-flow oxygen. It has dropped as low as 85% overnight. RESPIRATORY: Diminished breath sounds throughout. She does have a few scattered rhonchi in the apices. Very diminished on the left side. CARDIAC: Regular rate and rhythm. GASTROINTESTINAL: Abdomen is soft, nondistended, nontender. Bowel sounds are positive. NEUROLOGIC: She is somewhat anxious, but awake, alert and oriented times three. LABORATORY: WBCs 10.8 with a left shift, hemoglobin 11.4, hematocrit 33. Electrolytes show sodium 138, potassium 4.2, chloride 107, carbon dioxide 25, BUN 20, creatinine 0.63. Glucose 161, calcium 8.3, creatinine kinase 2193, CK- MB 6, troponin 0.49. All cardiac enzymes are improved from yesterday. Her first set of blood cultures show no growth after 48 hours. Her second set of blood cultures show no growth after 24 hours. Her chest x-ray shows persistent left lower lobe pneumonia with trace right sided pleural effusion that is stable in appearance. All other labs and films have been reviewed via the EMR. ASSESSMENT: 1. Exacerbation of chronic obstructive pulmonary disease with community acquired pneumonia bilaterally, more prominent on left than right. She is showing some clinical improvement with antibiotics although she did have to have ventilatory support with non-invasive ventilation with CPAP pressure support overnight and continues to require high-flow oxygen. 2. Elevated CPK secondary to rhabdomyolysis due to recent falls and extended length of time on the floor. Her CPK continues to improve daily. 3. Non-ST elevation myocardial infarction with elevated troponin on admission. The patient has had no chest pains or any acute findings on EKG. Her troponins continue to improve. 4. Left upper lobe nodule, new finding on CT, consistent with a lung carcinoma and neoplastic process. At this point, the patient has refused aggressive treatment. 5. Parkinson's disease resulting in multiple falls. 6. Laceration to the chin due to same level fall repaired in the Emergency Room. 7. Electrolyte imbalance on admission, improved. 8. Hypertension, presently on beta blockers. 9. Parkinson's disease, followed by Dr. Bonner, neurologist. PLAN: We will continue present supportive care. Since her preliminary blood cultures are showing no growth and she is improving clinically, I have discontinued her vancomycin. We will reevaluate her antibiotics tomorrow and we will continue on the meropenem and Levaquin. I also did an ambulatory study to qualify her for some home oxygen. We will hold her labs and chest x-ray for tomorrow and reevaluate on Friday. I spoke with her primary care provider, Luis Pryor, and he agrees that we will not do a CT of the abdomen at this time as the patient has expressed to him as well as to me that she does not want aggressive treatment at this time. He will get a CT of the abdomen if she decides to pursue more aggressive treatment. Her IV steroids have been changed to oral prednisone. I decreased her IV fluids. I will check her cardiac enzymes in the morning, but hold on the other labs. We will continue to monitor the patient closely and follow as needed. Dr. Head is the collaborating physician and available for consultation. [id number] [facility]
[2017-11-13] MEDS: IV SET AND CAP CHANGE INJ INJ SCH (17:48)
[2017-11-13] MEDS ORDERED: levoFLOXacin 250MG IV 50 ML IVPB ONE (19:39)
[2017-11-14] MEDS: PANTOPRAZOLE SODIUM TAB 40 MG PO SCH (06:03)
[2017-11-14] MEDS: IPRATROPIUM/ALBUTEROL 3 ML VIAL INH SCH ×4 (07:37→21:09)
[2017-11-14] MEDS: METOPROLOL TARTRATE 25 MG TAB PO SCH ×2 (08:00→17:22)
[2017-11-14] MEDS ORDERED: SODIUM CHL 0.9% 50ML MIN-BAG+ 50 ML IVPB ONE (09:29)
[2017-11-14] MEDS ORDERED: MEROPENEM 1 GM VIAL IVPB ONE (09:30)
[2017-11-14] MEDS: predniSONE 20 MG TAB PO SCH (09:58)
[2017-11-14] MEDS: ASPIRIN (CHEWABLE) 81 MG TAB PO SCH (09:58)
[2017-11-14] MEDS: guaiFENesin ER TAB 600 MG TAB PO SCH ×2 (09:58→20:57)
[2017-11-14] MEDS: BIFIDOBACTERIUM INFANTIS 4 MG CAP PO SCH (09:58)
[2017-11-14] MEDS: MEROPENEM 1 GM in SODIUM CHL 0.9% 50ML MIN-BAG+ 50 ML IVPB SCH (09:59)
[2017-11-14] MEDS: LEVODOPA PO SCH ×3 (10:00→20:55)
[2017-11-14] MEDS: CARBIDOPA PO SCH ×3 (10:00→20:55)
[2017-11-14] MEDS: ENOXAPARIN SODIUM 60 MG/0.6 ML SYG SUBCU SCH ×2 (10:00→20:57)
[2017-11-14] MEDS: AMANTADINE HCL 100 MG CAP PO SCH ×2 (10:00→20:56)
--- NOTE | 2017-11-14 13:20 | PN ---
SUPERVISING PHYSICIAN: Bala Head MD DATE: 11/14/17 SUBJECTIVE: The patient is lying in her hospital bed. She is in no acute distress. She did use her CPAP for 3-1/2 hours last night, but she said it made her very nervous when she uses it. I have encouraged her to use it at nighttime as much as possible as we are titrating off her oxygen, but to ask for some antianxiety medicine to help her tolerate it. Otherwise, she denies chest pain, nausea, vomiting, constipation or diarrhea. She continues to have shortness of breath, but somewhat improved. OBJECTIVE: VITAL SIGNS: Afebrile. Heart rate 78. It has been as high as 108. Blood pressure 161/79. Respiratory rate 22. O2 saturation 93% on 10 liters high-flow oxygen. RESPIRATORY: Diminished breath sounds throughout. She is slightly tachypneic at times and speaks in short phrases due to the dyspnea. CARDIAC: Regular rate and rhythm. NEUROLOGIC: She is awake, alert and oriented times three. LABORATORY: Her initial set of blood cultures show no growth after 3 days. Her second set of blood cultures show no growth after 48 hours. All other labs and films have been reviewed via the EMR. ASSESSMENT: 1. Exacerbation of chronic obstructive pulmonary disease with community acquired pneumonia bilaterally, more prominent on left than right. She is showing some clinical improvement with antibiotics although she did have to have ventilatory support with non-invasive ventilation with CPAP pressure support overnight and continues to require high-flow oxygen. 2. Elevated CPK secondary to rhabdomyolysis due to recent falls and extended length of time on the floor. Her CPK continues to improve daily. 3. Non-ST elevation myocardial infarction with elevated troponin on admission. The patient has had no chest pains or any acute findings on EKG. Her troponins continue to improve. 4. Left upper lobe nodule, new finding on CT, consistent with a lung carcinoma and neoplastic process. At this point, the patient has refused aggressive treatment. 5. Parkinson's disease resulting in multiple falls. 6. Laceration to the chin due to same level fall repaired in the Emergency Room. 7. Electrolyte imbalance on admission, improved. 8. Hypertension, presently on beta blockers. 9. Parkinson's disease, followed by Dr. Bonner, neurologist. PLAN: We will continue present supportive care. I have continued to encourage good pulmonary hygiene and to use CPAP at night. I have written an order for nurses to give the patient some Xanax when she initiates her CPAP treatment. I have ordered lab and chest x-ray for in the morning. I have also expressed to respiratory that her saturations can stay between 85 and 91% and to decrease her oxygen flow to keep her O2 saturation in the targeted range. She will also need to go home on home O2. I have opted not to do an abdominal CT as the patient does not want any aggressive treatment at this time and I have spoken with her primary care provider, Luis Pryor, and he agreed with me that he could do any followup testing that needed to be done as an outpatient. We will continue to monitor the patient closely and follow as needed. Dr. Head is the collaborating physician and available for consultation. #[id number] [facility]
[2017-11-14] MEDS ORDERED: levoFLOXacin 250MG IV 50 ML IVPB ONE (19:35)
[2017-11-14] MEDS: levoFLOXacin 250MG IV 250 MG in PREMIX BAG 1 BAG IVPB SCH (23:30)
[2017-11-15] MEDS: KCL 20MEQ/0.45% NS 1,000 ML IVS PRN (00:45)
[2017-11-15] MEDS: PANTOPRAZOLE SODIUM TAB 40 MG PO SCH (06:26)
--- NOTE | 2017-11-15 07:44 | RAD ---
Clinical History : pna , MAIN Exam : PA and lateral views of the chest 11/15/2017 5:00 AM CDT Comparisons : PA and lateral views the chest 03/15/2018 Findings : There is a moderate left and small right pleural effusion with bibasilar airspace disease. There is mild peribronchial thickening diffusely. The heart is normal in size. The mediastinal contours are distorted by patient rotation to the right . The thoracic spine is age appropriate. The shoulders are unremarkable. Limited evaluation of the upper abdomen demonstrates no gross abnormalities. Impression: 1. Stable bilateral pleural effusions with bibasilar airspace disease. 2. Rotated exam. Electronically signed by: Matt Kasper MD 11/15/2017 7:43 AM CDT
[2017-11-15] MEDS: METOPROLOL TARTRATE 25 MG TAB PO SCH ×2 (08:30→17:31)
[2017-11-15] MEDS: IPRATROPIUM/ALBUTEROL 3 ML VIAL INH SCH ×4 (08:46→20:30)
[2017-11-15] MEDS: ASPIRIN (CHEWABLE) 81 MG TAB PO SCH (10:09)
[2017-11-15] MEDS: predniSONE 20 MG TAB PO SCH (10:09)
[2017-11-15] MEDS: AMANTADINE HCL 100 MG CAP PO SCH ×2 (10:09→20:44)
[2017-11-15] MEDS: BIFIDOBACTERIUM INFANTIS 4 MG CAP PO SCH (10:09)
[2017-11-15] MEDS: guaiFENesin ER TAB 600 MG TAB PO SCH ×2 (10:09→20:41)
[2017-11-15] MEDS: LEVODOPA PO SCH ×3 (10:09→20:41)
[2017-11-15] MEDS: CARBIDOPA PO SCH ×3 (10:09→20:41)
[2017-11-15] MEDS: ENOXAPARIN SODIUM 40 MG/0.4 ML SYG SUBCU SCH (10:11)
[2017-11-15] MEDS ORDERED: levoFLOXacin 250MG IV 50 ML IVPB ONE (19:52)
[2017-11-15] MEDS: SODIUM CHLORIDE 0.9% (FLUSH) 10 ML SYG IV SCH (20:44)
--- NOTE | 2017-11-15 20:51 | PN ---
DATE: 11/15/17 SUPERVISING PHYSICIAN: Lobo Granados M.D. SUBJECTIVE: The patient is sitting in the bedside chair currently on 6 liters nasal cannula doing well. Continues to maintain just high 80s on the sats but is in no respiratory distress. She does note that she has some pain in her left lower leg with trying to ambulate in the back of the calf. She remains afebrile. OBJECTIVE: VITAL SIGNS: Temperature 98.7, pulse 64, blood pressure 164/76, respiratory 18, satting 94% on nasal cannula at 4 liters at rest. I's and O's show a negative balance of 660 with 3090 in, 3750 out. Weight 51.3 kg. CHEST: Lungs are fairly clear throughout, just diminished. The patient is now showing no accessory muscle usage and is able to talk in full sentences without any demonstrated shortness of breath. HEART: Regular rate and rhythm. ABDOMEN: Soft, non-tender. Positive bowel sounds. EXTREMITIES: No clubbing, cyanosis or edema. She does have some reported pain in the left calf with flexion and extension of her foot. LABORATORY: White count today is 8,500, hemoglobin 11.9, hematocrit 34.6, platelet count 243,000. Differential shows to be without a left shift. Chemistries show normal electrolytes with potassium 3.6, BUN 18, creatinine 0.88 , calcium 8.3, magnesium normal at 2. Liver functions all within normal limits. CPK continues to return to baseline down to 311 as well as troponins returning to baseline at 0.09. MICROBIOLOGY: All of her blood cultures, which includes 4 sets, show no growth at 5 days and 3 days. RADIOLOGY: Chest x-ray per radiology interpretation shows stable bilateral pleural effusions with bibasilar airspace disease. ASSESSMENT: 1. Exacerbation of chronic obstructive pulmonary disease with community acquired pneumonia bilaterally more prominent on the left than right showing slow clinical improvement with antibiotics requiring p.r.n. ventilatory support with noninvasive ventilation, CPAP pressure support and titrating to a low flow nasal cannula slowly. 2. Elevated CPK secondary to Rhabdomyolysis due to recent falls and extended length of time on the floor with CPKs returning to normal baseline. 3. Non-ST segment elevation myocardial infarction with elevated troponin on admission with no reported chest pains and no acute findings on EKG with the troponins returning to baseline. 4. Left upper lobe nodule, new finding on CT consistent with lung carcinoma and neoplastic process with the patient refusing to have any aggressive treatment, awaiting further management as an outpatient. 5. Parkinson's disease resulting in multiple falls followed by Dr. Olvera, neurologist. 6. Laceration of the chin due to same level fall having been repaired in the E. R. with sutures needing to come out at least by this coming Friday. 7. Electrolyte imbalance on admission, now resolved. 8. Hypertension on beta blockers. PLAN: Will continue with aggressive pulmonary hygiene and CPAP as needed and try to titrate the patient off CPAP on high flow nasal cannula with anticipation of hopefully discharging home on nasal cannula O2 in the next 48 hours. Once discharged, she will need to continue with followup with Luis Pryor , her primary care provider, in regards to the findings on CT of the lungs as well as to continue followup to complete resolution of her underlying pneumonia. She continues to work with Physical Therapy and will need close following daily. Should her leg continue to hurt on the left, certainly will consider doing an ultrasound for DVT, however the patient has been on Lovenox 1 mg per kg now since admission every 12 hours. Given that her troponins returned to baseline and she has been on 1 mg per kg greater than 3 days and remains on aspirin, will change to DVT prophylaxis with 40 mg every 24 hours. Will remove her Lundberg today with anticipation of hopefully being able to discharge again either tomorrow or Friday. Until then, will continue to monitor and treat appropriately. Her labs are fairly stable. CBC has show a hemoglobin and hematocrit being stable as well as white count has normalized. Will plan to monitor labs as needed and repeat a chest x-ray either tomorrow or the next day. Until clinically stable, will continue to monitor and treat appropriately. #[id number] [facility]
[2017-11-16] MEDS: SODIUM CHLORIDE 0.9% (FLUSH) 10 ML SYG IV PRN (00:05)
[2017-11-16] MEDS: levoFLOXacin 250MG IV 250 MG in PREMIX BAG 1 BAG IVPB SCH ×2 (00:06→23:26)
[2017-11-16] MEDS ORDERED: METOPROLOL TARTRATE 25 MG TAB PO ONE (03:16)
[2017-11-16] MEDS: PANTOPRAZOLE SODIUM TAB 40 MG PO SCH (06:15)
[2017-11-16] MEDS: IPRATROPIUM/ALBUTEROL 3 ML VIAL INH SCH ×4 (07:30→19:27)
[2017-11-16] MEDS: METOPROLOL TARTRATE 25 MG TAB PO SCH (07:38)
[2017-11-16] MEDS: guaiFENesin ER TAB 600 MG TAB PO SCH ×2 (08:53→20:16)
[2017-11-16] MEDS: ASPIRIN (CHEWABLE) 81 MG TAB PO SCH (08:53)
[2017-11-16] MEDS: predniSONE 20 MG TAB PO SCH (08:55)
[2017-11-16] MEDS: CARBIDOPA PO SCH ×3 (08:56→20:16)
[2017-11-16] MEDS: LEVODOPA PO SCH ×3 (08:56→20:16)
[2017-11-16] MEDS: BIFIDOBACTERIUM INFANTIS 4 MG CAP PO SCH (08:56)
[2017-11-16] MEDS: ENOXAPARIN SODIUM 40 MG/0.4 ML SYG SUBCU SCH (08:56)
[2017-11-16] MEDS: SODIUM CHLORIDE 0.9% (FLUSH) 10 ML SYG IV SCH ×2 (08:57→20:17)
[2017-11-16] MEDS: AMANTADINE HCL 100 MG CAP PO SCH ×2 (11:15→20:16)
[2017-11-16] MEDS: METOPROLOL TARTRATE 50 MG TAB PO SCH (17:25)
[2017-11-16] MEDS: IV SET AND CAP CHANGE INJ INJ SCH (17:29)
--- NOTE | 2017-11-16 21:48 | PN ---
DATE: 11/16/17 SUPERVISING PHYSICIAN: Lobo Granados M.D. SUBJECTIVE: The patient notes that she feels much better today and in fact feels better than she has since she has been in the hospital. She is maintaining good O2 saturations on low flow nasal cannula at 2 liters. She continues with a little pain in her left lower leg, but says it is a little bit better than yesterday. I was called early this morning in regards to her heart rate which had started becoming more rapid in the 130s and 140s. She was given additional 25 mg of Metoprolol which did result in good response. She does remain stable. She is without any fever. OBJECTIVE: VITAL SIGNS: T max temperature 98.4, pulse 84, blood pressure 128/72 , respirations 20, satting 97% on nasal cannula at 1 liter. I's and O's show a negative balance of 612 with 1463 in, 2075 out. She has had several bowel movements. Weight is 50.5 kg. CHEST: Lung sounds are much improved today. I hear no rhonchi, wheezing or rales. She still just remains diminished slightly towards the bases. HEART: slightly irregular rate and rhythm with an atrial flutter noted on the bedside monitor with a controlled ventricular rate. ABDOMEN: Soft, non-tender. Positive bowel sounds. EXTREMITIES: No clubbing, cyanosis or edema. NEUROLOGIC: She is alert and oriented times three. LABORATORY: CBC has been stable. Chemistries today show normal electrolytes at 3.6 with BUN 18, creatinine 0.83. Troponin now has returned to baseline at 0.04. CPK is down to 238. MICROBIOLOGY: Blood cultures all remain negative at 5 days and 4 days. RADIOLOGY: There are no additional radiographic studies today. Will repeat a chest x-ray tomorrow. ASSESSMENT: 1. Exacerbation of chronic obstructive pulmonary disease with community acquired pneumonia bilaterally having been worse on the left than right requiring very aggressive ventilatory management with noninvasive ventilation with CPAP pressure support, now able to titrate down to a low flow nasal cannula maintaining mid 90 O2 saturations. 2. Elevated CPK secondary to Rhabdomyolysis from recent falls and extended length of time on the hard floors with CPK returning to normal baseline status. 3. Non-ST segment elevation myocardial infarction with elevated troponin on admission now returning to baseline at 0.04 with the patient having no reported chest pains and continues to have no ST-T wave elevation or T wave inversions on EKG, but she does have a new onset of atrial flutter/atrial fibrillation with a variable rate requiring initiation of Metoprolol and anticoagulation. 4. Left upper lobe nodule, new finding on CT consistent with lung carcinoma and/or neoplastic process with the patient aware of the situation but refusing to have aggressive treatment requiring further outpatient followup. 5. Parkinson's disease resulting in multiple falls followed by Dr. Bonner, neurologist. 6. Laceration of the chin secondary to a fall having been approximated in the E. R. with sutures which will come out tomorrow. 7. Electrolyte imbalance on admission, now showing to be stable. 8. Hypertension with no past history of hypertension or evidence of any heart failure with no echocardiogram for review with the patient having been initiated on beta blockers status post myocardial infarction showing to be stable. PLAN: Will continue again with aggressive management in regards to pulmonary hygiene. She has been able to stay on the nasal cannula at 2 liters with good results. She will certainly probably need to go on oxygen once she leaves with arrangements being made tomorrow. Will need to touch base with [facility] in regards to making arrangements for home O2. She also needs some social service consultation as she does live generally by herself, but has a granddaughter that is coming out of town to be with her, and hopefully anticipating discharging tomorrow or Friday. In regards to the new onset of atrial flutter/ atrial fibrillation, the patient has been fairly well controlled on a beta blockade but required initiation of additional dosing, therefore I will change her dosing to Metoprolol tartrate 50 b.i.d. and look at transitioning her tomorrow once she shows to be stable on that dose to long-acting beta blanche with tartrate as she has voiced that she is not wanting to be on any medications , and certainly this will facilitate more medical compliance. She will need to be on anticoagulation but considering that she as Parkinson's and has multiple falls with a significant amount of injuries as evidenced by Rhabdomyolysis, at this point I will opt to start her on a high dose aspirin and have her followup with Luis Pryor, her primary care provider, to further target any kind of anticoagulation therapy as well as possible need to followup with cardiology. I have a feeling the patient is going to opt to not followup with either oncology or cardiology as she has voiced this multiple times since being in the hospital, but will need to reinforce the need to do so once discharged. She again is showing good improvement clinically and has shown improvement in her spirits which is hopefully going to change her mind and help her pursue further management of her underlying illnesses. Anticipate discharge again hopefully tomorrow or the next. Will repeat x-ray in the morning. Her labs have been stable and will continue to monitor those as needed. Until discharge, will continue to follow and treat appropriately. #[id number] [facility]
[2017-11-16] MEDS ORDERED: levoFLOXacin 250MG IV 50 ML IVPB ONE (23:25)
[2017-11-17] MEDS: PANTOPRAZOLE SODIUM TAB 40 MG PO SCH (05:47)
--- NOTE | 2017-11-17 07:31 | RAD ---
EXAM DESCRIPTION: XR CHEST 2 VIEWS CLINICAL HISTORY: Pneumonia COMPARISON: 11/15/2017 TECHNIQUE: PA/lateral FINDINGS: Normal heart size. Left lower lobe infiltrate and pleural effusion similar to previous study. Mildly prominent stormy vasculature No pulmonary edema. Left upper lobe pulmonary nodule measuring up to 1.4 cm strongly suggesting lung carcinoma IMPRESSION: Left lower lobe infiltrate consistent with pneumonia and small parapneumonic effusion Left upper lobe pulmonary nodule strongly suggesting lung carcinoma Electronically signed by: Bala Veliz MD 11/17/2017 7:29 AM CDT
[2017-11-17] MEDS: IPRATROPIUM/ALBUTEROL 3 ML VIAL INH SCH ×2 (07:51→11:52)
[2017-11-17] MEDS: METOPROLOL TARTRATE 50 MG TAB PO SCH (08:00)
[2017-11-17] MEDS ORDERED: HYDROcodone 5MG/APAP 325MG 1 EA TAB PO PRN (08:52)
[2017-11-17] MEDS ORDERED: ASPIRIN TABLET 325 MG TAB PO SCH (09:00)
[2017-11-17] MEDS: predniSONE 20 MG TAB PO SCH (09:18)
[2017-11-17] MEDS: BIFIDOBACTERIUM INFANTIS 4 MG CAP PO SCH (09:18)
[2017-11-17] MEDS: ASPIRIN (CHEWABLE) 81 MG TAB PO SCH (09:19)
[2017-11-17] MEDS: SODIUM CHLORIDE 0.9% (FLUSH) 10 ML SYG IV SCH (09:19)
[2017-11-17] MEDS: guaiFENesin ER TAB 600 MG TAB PO SCH (09:19)
[2017-11-17] MEDS: ENOXAPARIN SODIUM 40 MG/0.4 ML SYG SUBCU SCH (09:19)
[2017-11-17] MEDS: CARBIDOPA PO SCH (09:26)
[2017-11-17] MEDS: AMANTADINE HCL 100 MG CAP PO SCH (09:26)
[2017-11-17] MEDS: LEVODOPA PO SCH (09:26)
[2017-11-17 11:56] VITALS: O2SAT 95
[2017-11-17 12:40] VITALS: BP 119/68; TEMP 97.8
--- NOTE | 2017-11-18 08:41 | DS ---
SUPERVISING PHYSICIAN: Mark Newman MD DISCHARGE DIAGNOSIS: 1. Exacerbation of chronic obstructive pulmonary disease with community acquired pneumonia bilaterally. 2. Rhabdomyolysis secondary to multiple falls. 3. Non-ST segment elevation myocardial infarction with troponin returning to baseline. 4. Left upper lobe nodule, new finding on CT consistent with lung carcinoma, requiring further workup, suspicious for neoplastic process. 5. Parkinson's disease resulting in multiple falls, followed by Dr. Bonner, neurologist. 6. Trauma with laceration of the chin status post fall. 7. Hypertension with the patient having no current echocardiogram having been started on beta blockers. 8. New onset of atrial flutter/atrial fibrillation status post myocardial infarction having controlled ventricular rate with beta blockers and started on aspirin with the patient having high risk factors for falls. REASON FOR HOSPITALIZATION: Ms. Marsh is a 72-year-old, female patient who initially presented to the Emergency Room on 11/10/17 secondary to multiple falls sustained over the last several days prior to admission. She has a longstanding history of Parkinson's and tremors with movement issues that have progressively worsened over the week prior to admission. The patient noticed she was weak and sometimes got dizzy when she stands up. She had fallen multiple times at home in the previous week and on the morning of admission had spent several hours on the floor because she was unable to get up after a fall. With that fall, she sustained a 1 inch laceration to the chin. Initially in the Emergency Room, it was noted she was having significant desaturations into the 80s with any conversational effort and simply sitting at rest. She did show improvement with rest and oxygenation with nasal cannula. Initially, she was showing no respiratory distress and had no complaints of any chest pains. Radiographic studies completed in the Emergency Room also showed she had concerns for airspace opacities in the right lung which could represent pneumonia. Dr. Head, Emergency Room physician, did a local on her chin and completed placement of sutures to the chin laceration with no complications. She continued to show low O2 saturations, again in the 80s. Given the findings of right lower lobe pneumonia on x-ray with desaturations, she was started on treatment for community acquired pneumonia with Rocephin and azithromycin after blood cultures were completed. She was given IV fluids. It was noted her cardiac enzymes on admission showed some elevation, but the patient was without any chest pains. She did again have significant elevation in her CPK which was felt to be secondary to her multiple falls in the past with concerns for rhabdomyolysis. Her EKG showed normal sinus rhythm with no ST or T wave changes. It was also noted she had positive tilt vital signs with her systolic blood pressure dropping 18 points with standing. Given the concerns for pneumonia and elevated troponin and significant desaturation, the patient was admitted to the Medical/Surgical Floor for continuation of treatment of community acquired pneumonia. She was admitted in stable condition. LABORATORY STUDIES: Initial white count on admission was 13,000. At discharge after full treatment, it was down to 8,500. Hemoglobin and hematocrit stabilized and at discharge were 11.9 and 34.6, platelet count 243,000. Differential did show a left shift on admission and prior to discharge and after treatment, the lefts shift had resolved. Coagulation studies showed she had a slightly elevated PT of 12.9 and INR 1.1 with PT-T 23.0. She had two sets of blood gasses that were completed, one shortly after admission with a pH 7.48, PCO2 31, PO2 51, bicarb 22, saturation 88% on high flow nasal cannula at 10 liters. She had another set of cultures drawn 2 days later after she again had a significant desaturation event and again was showing pH 7.48, PCO2 29, PO2 46, saturation 84% on nasal cannula on high flow at 10 liters. Chemistries initially on admission showed electrolytes with low potassium 3.4, BUN 15, creatinine 0.9, calcium 8.9, lactic acid 1.0. Bilirubin 1.7. All other liver functions were within normal limits. Initial CPK was 5,784 on admission with troponin initially of 0.45. Serial CPKs were completed with a maximum at 10, 282 and with fluids and treatment prior to discharge had returned to baseline at 238. Her troponin was followed and peaked at 2.13 and had normalized to baseline at 0.04 prior to discharge. AST did elevate to 103, but had normalized and was 42 at discharge. Bilirubin as well had normalized and was 0.9 at discharge. All other liver functions were within normal limits. Magnesium normal at 2.0, calcium remained fairly normal at 8.4 at discharge. BUN was fairly normal and at discharge was 18, creatinine was initially 0.9 and at discharge was 0.83, stayed normal through admission. Electrolytes continued to remain within normal limits as well as at discharge. Urinalysis on admission showed 15 ketones, trace blood, small amount of bilirubin. Microscopic was within normal limits. Repeat after Lundberg placement showed ketones 15, small amount of blood and all other indices were within normal limits. MICROBIOLOGY: She had 4 sets of blood cultures, all remained negative after 5 days. RADIOLOGY: She had multiple chest x-rays starting initially in the Emergency Room showing airspace opacities in the right lung base which could represent pneumonia. She then had a CTA of the chest due to acute episode of respiratory distress with concerns for pulmonary embolism and per radiologic interpretation there was no pulmonary embolism, but of note was small bilateral pleural effusions with consolidative changes involving the lower lobes and left lobe which represent atelectasis and/or pneumonia. Also of note was a nodular density in the left upper lobe suspicious for a focal lesion with diffuse bronchial thickening which could be due to inflammation as well as increased soft tissue in the subcarinal region can actually focal enlargement of the lymph nodes. Followup x-ray the next day after the CTA per radiologic interpretation showed left perihilar and lower lobe pneumonia developed in the interval with lungs being consistent with chronic obstructive pulmonary disease and the left upper nodule noted on CT was consistent with lung carcinoma. She was followed with multiple x-rays through admission. Last x-ray on 11/17/17 on day of discharge per radiologic interpretation showed left lower lobe infiltrate consistent with pneumonia and small parapneumonic effusion and left upper lobe pulmonary nodule strongly suggesting lung carcinoma. No additional radiographic studies were completed. HOSPITAL COURSE: Ms. Marsh was admitted on 11/10/17 with hypoxia with concerns for acute myocardial infarction along with developing community acquired pneumonia. She required high-flow oxygen initially for the first 48 hours and showed a significant decline in respiratory effort and was started on noninvasive ventilatory support with CPAP. She did well at 60% FIO2 and was able to be titrated down over the course of her hospitalization. The day of discharge, she was requiring no supplemental oxygen and was ambulating without any problems on room air. Her pneumonia was treated with antibiotics including Levaquin and azithromycin and Rocephin. After she showed significant decline, she was started on vancomycin and meropenem with unknown source and no growth on cultures, but clinically showing decline. She then responded well to treatment and was able to tolerate antibiotic therapy with no complications. She required some corticosteroid administration as well and again continued to show improvement and was able to be deescalated off her antibiotic therapy to only Levaquin along with corticosteroids, p.o. prednisone. She did become tachycardic at one point and ended up showing atrial flutter/atrial fibrillation with a rapid ventricular rate and required initiation of rate control medication initially with Cardizem followed by metoprolol which was 25 mg b.i.d. She had fairly good rate control, however, she continued periodically to have a rapid response and required escalation of her metoprolol to 50 mg b.i.d. which she tolerated well and was showing good rate control. She was on anticoagulation therapy per protocol initially with 1 mg per kg for 5 days, which was then deescalated to 40 mg daily as well as she was initiated on aspirin. Given her high risk factors for fall, it was decided to leave her on 325 mg aspirin and not start her as of yet on other anticoagulation such as Eliquis, Xarelto or warfarin. Within the first 24 hours of hospitalization, the patient opted to make her Do Not Resuscitate. There were long discussions in regards to the final CT regarding possibly transferring to higher level of care which the patient refused adamantly through the whole hospitalization noting that she would seek further assessment as she got better and was able to be discharged and do this all in the outpatient setting. The patient showed clinical response to treatment over the length of stay and on date of discharge was felt clinically well enough to continue with outpatient treatment plan. PLAN: Ms. Marsh was discharged on 11/17/17 with instructions to followup with her primary care provider, Luis Pryor, Nurse Practitioner. Discussions had been had with Luis in regard to the findings on CT of lung carcinoma. She will need continued followup of x-rays as well as further attempts to address the findings on CT, which through the hospitalization the patient was very adamant that she was not going to seek any treatment. In fact, she made herself a DNR on the day of admission. At discharge, she was told to resume her home medications and to take new medications as instructed. Diet at discharge was regular diet. Activity to increase as tolerated. DISCHARGE MEDICATIONS: 1. Ventolin handheld inhaler 1 puff q.4h. as needed, #1 inhaler. 2. Aspirin 325 mg daily. 3. Align 4 mg daily. 4. Guaifenesin 600 mg twice a day. 5. Levaquin 250 mg for an additional 10 days. 6. Medrol Dosepak 4 mg daily as directed. 7. Metoprolol tartrate 50 mg twice daily. Discharge condition was stable and improved. #[id number] [facility]
== END 2017-11-17 14:10 | disposition home or self-care (01) | DRG 193 ==
LOC: ER 11:07 → MS 15:16
PROVIDERS: ADMIT Nurse Practitioner Family; ATTEND Nurse Practitioner Family
PROC: B32T1ZZ Computerized Tomography (CT Scan) of Left Pulmonary Artery using Low Osmolar Contrast (ICD-10-PCS; principal; 2017-11-10)
PROC: B32S1ZZ Computerized Tomography (CT Scan) of Right Pulmonary Artery using Low Osmolar Contrast (ICD-10-PCS; 2017-11-10)
PROC: 0HQ1XZZ Repair Face Skin, External Approach (ICD-10-PCS; 2017-11-10)
DX: J18.9 Pneumonia, unspecified organism (principal); I21.4 Non-ST elevation (NSTEMI) myocardial infarction; J44.0 Chronic obstructive pulmonary disease with (acute) lower respiratory infection; J44.1 Chronic obstructive pulmonary disease with (acute) exacerbation; I48.92 Unspecified atrial flutter; C34.12 Malignant neoplasm of upper lobe, left bronchus or lung; J91.8 Pleural effusion in other conditions classified elsewhere; T79.6XXA Traumatic ischemia of muscle, initial encounter; W19.XXXA Unspecified fall, initial encounter; Y92.9 Unspecified place or not applicable; G20 Parkinson's disease; R29.6 Repeated falls; I48.91 Unspecified atrial fibrillation; I10 Essential (primary) hypertension; S01.81XA Laceration without foreign body of other part of head, initial encounter; E87.6 Hypokalemia; T50.2X5A Adverse effect of carbonic-anhydrase inhibitors, benzothiadiazides and other diuretics, initial encounter; R09.02 Hypoxemia; Z66 Do not resuscitate; Z79.82 Long term (current) use of aspirin; Z79.899 Other long term (current) drug therapy

== ENCOUNTER → 2017-12-18 | Outpatient (CLI) | payer MEDICARE, OTHER | LOC: RESP 15:07 | PROVIDERS: ATTEND Nurse Practitioner Family | DX: R00.0 Tachycardia, unspecified (principal) ==

== ENCOUNTER → 2017-12-22 | Outpatient (CLI) | payer MEDICARE, OTHER | LOC: LAB.O 08:14 | PROVIDERS: ATTEND Nurse Practitioner Family | DX: I48.91 Unspecified atrial fibrillation (principal) ==

== ENCOUNTER 2018-01-19 13:30 | Observation (INO) | payer MEDICARE, OTHER ==
[2018-01-19] MEDS ORDERED: SODIUM CHLORIDE 0.9% (FLUSH) 10 ML SYG IV PRN ×2 (13:47→19:09)
[2018-01-19] MEDS ORDERED: diltiaZEM DRIP 125 MG/25 ML VIAL IVPB ONE (13:55)
[2018-01-19] MEDS ORDERED: SODIUM CHLORIDE 0.9% 100ML 100 ML IVPB ONE (13:55)
[2018-01-19] MEDS ORDERED: diltiaZEM DRIP 125 MG in SODIUM CHLORIDE 0.9% 100ML 100 ML IVPB SCH (14:00)
--- NOTE | 2018-01-19 14:04 | ED.PDOC ---
History of Present Illness - General Chief Complaint: Cardiovascular Problem Stated Complaint: DIZZINESS Time Seen by Provider: 01/19/18 13:34 Source: patient Exam Limitations: clinical condition - History of Present Illness Initial Comments: PT PRESENTS TO THE ED WITH COMPLAINT OF DIZZINESS FOR THE PAST 3 DAYS. PT REPORTS A HISTORY OF AFIB AND TAKES COUMADIN. PT DENIES CHEST PAIN OR SOB. Timing/Duration: days - 3 Activities at Onset: none Improving Factors: nothing Worsening Factors: nothing Allergies/Adverse Reactions: Allergies NO KNOWN ALLERGY Allergy (Verified 11/10/17 16:12) Home Medications: Ambulatory Orders Amantadine HCl [Symmetrel] 50 mg PO BID 11/10/17 Carbidopa/Levodopa 25/250 [Sinemet 25/250] 1 tablet PO TID 11/10/17 Lisinopril & Hydrochlorothiazi [Lisinopril/Hctz 10-12.5 mg] 1 tab PO DAILY PRN 11/10/17 Albuterol Inhaler [Ventolin Hfa Inhaler] 1 puff INH Q4H PRN #1 inh 11/17/17 Aspirin 325 mg PO DAILY tab 11/17/17 Bifidobacterium Infantis [Align] 4 mg PO DAILY cap 11/17/17 Levofloxacin [Levaquin] 250 mg PO DAILY #10 tablet 11/17/17 Methylprednisolone [Medrol Dose Gómez] 4 mg PO DAILY 6 Days #21 tab 11/17/17 Metoprolol Tartrate [Lopressor] 50 mg PO BID #60 tab 11/17/17 guaiFENesin ER TAB [Mucinex Tab] 600 mg PO BID tab 11/17/17 Review of Systems - Review of Systems Constitutional: Denies: chills, fever EENTM: Denies: nose congestion, throat pain Respiratory: Denies: cough, short of breath Cardiology: Denies: chest pain, palpitations Gastrointestinal/Abdominal: Denies: diarrhea, nausea, vomiting Genitourinary: Denies: dysuria, frequency Musculoskeletal: Denies: joint pain, joint swelling Skin: Denies: dryness, lesions Neurological: States: tremors. Denies: headache, numbness Endocrine: States: no symptoms reported Past Medical History (General) - Patient Medical History Hx Seizures: No Hx Stroke: No Hx Dementia: No Hx Asthma: No Hx of COPD: No Hx Cardiac Disorders: Yes - AFIB Hx Congestive Heart Failure: No Hx Pacemaker: No Hx Hypertension: Yes Hx Thyroid Disease: No Hx Diabetes: No Hx Gastroesophageal Reflux: Yes Hx Renal Disease: No Hx Cancer: No Hx of HIV: No Hx Hepatitis C: No Hx MRSA: No - Vaccination History Hx Tetanus, Diphtheria Vaccination: No Hx Influenza Vaccination: No Hx Pneumococcal Vaccination: No Immunizations Up to Date: No - Social History Hx Tobacco Use: No Hx Chewing Tobacco Use: No Hx Alcohol Use: No Hx Substance Use: No Hx Substance Use Treatment: No Hx Depression: No Feels Threatened In Home Enviroment: No Feels Threatened In a Relationship: No Hx Physical Abuse: No Hx Emotional Abuse: No Hx Suspected Abuse: No - Female History Patient is a Female of Child Bearing Age (10 -59 yrs old): No Patient : No Family Medical History - Family History Mother Family History: No Known Physical Exam - Physical Exam General Appearance: Alert, No apparent distress Eyes, Ears, Nose, Throat Exam: normal ENT inspection Neck: supple, normal inspection Respiratory: lungs clear, normal breath sounds, no respiratory distress Cardiovascular/Chest: tachycardia, irregularly irregular Gastrointestinal/Abdominal: non tender, soft, no organomegaly Extremity: normal inspection, no pedal edema Neurologic: alert, normal mood/affect, oriented x 3, other - RESTING TREMOR NOTED Skin Exam: normal color, warm/dry Progress - Progress Progress: 01/19/18 15:04 PT RESTING COMFORTABLY ON RE-EVALUATION. HR NOW SR IN THE 70S AFTER CARDIZEM. LABS AND DIAGNOSTICS DISCUSSED. 01/19/18 17:00 PT CONTINUES TO REST COMFORTABLY, NOW IN A SR AT 105. REPEAT EKG AND TROP ORDERED. CASE FURTHER DISCUSSED WITH JAKOB MANTILLA NP. WILL D/C CARDIZEM AND GIVE PT PO LOPRESSOR FOR RATE CONTROL. - Results/Orders Results/Orders: 01/19/18 13:47 IV Care:Saline Lock per Protoc QSHIFT Telemetry .ONCE Sodium Chloride 0.9% (Flush) [Saline Flush Syringe] 10 ml IV PRN PRN EKG Stat Pulse Ox Stat 01/19/18 17:00 EKG STAT 01/19/18 17:11 TROPONIN-I Stat Laboratory Results - last 24 hr 01/19/18 13:30 WBC 7.0 RBC 4.85 Hgb 14.6 Hct 43.8 MCV 90.4 MCH 30.1 MCHC 33.2 RDW 14.0 Plt Count 230 MPV 7.2 L Absolute Neuts (auto) 4.60 Absolute Lymphs (auto) 1.60 Absolute Monos (auto) 0.60 Absolute Eos (auto) 0.10 Absolute Basos (auto) 0.00 Neutrophils % 66.1 Lymphocytes % 23.2 Monocytes % 8.9 Eosinophils % 1.2 Basophils % 0.6 PT 19.6 H INR 1.97 H PTT (SP) 26.0 Sodium 142 Potassium 3.6 Chloride 101 Carbon Dioxide 29 Anion Gap 15.6 BUN 16 Creatinine 0.90 BUN/Creatinine Ratio 17.8 Random Glucose 102 Serum Osmolality 284.5 Calcium 9.6 Magnesium 2.1 Total Bilirubin 0.9 Direct Bilirubin 0.1 Indirect Bilirubin 0.8 AST 28 ALT < 8 L Alkaline Phosphatase 72 Creatine Kinase 117 CK-MB (CK-2) 5.7 H* CK-MB (CK-2) % 4.87 H Troponin I 0.02 B-Natriuretic Peptide 611.0 H* Serum Total Protein 7.0 Albumin 4.2 - EKG/XRAY/CT EKG: Atrial, Fibrillation - 136BPM, RVR, ST depression - IN THE INFERIOR AND LATERAL LEADS, Unchanged from - 12/18/17 - Additional EKG/XRAY/Consults EKG #2: Sinus - @75BPM, 2ND DEGREE AV BLOCK, WITH PSVCS, ST depression - IN THE INFERIOR AND LATERAL LEADS. , Changed from - PREVIOUS EKG IN WHICH PT WAS IN AFIB WITH RVR. Departure - Departure Clinical Impression: Atrial fibrillation with rapid ventricular response, Dizziness, Uncontrolled hypertension Time of Disposition: 15:06 Disposition: Admit Patient Condition: Fair Home Medications: Ambulatory Orders Amantadine HCl [Symmetrel] 50 mg PO BID 11/10/17 Carbidopa/Levodopa 25/250 [Sinemet 25/250] 1 tablet PO TID 11/10/17 Lisinopril & Hydrochlorothiazi [Lisinopril/Hctz 10-12.5 mg] 1 tab PO DAILY PRN 11/10/17 Albuterol Inhaler [Ventolin Hfa Inhaler] 1 puff INH Q4H PRN #1 inh 11/17/17 Aspirin 325 mg PO DAILY tab 11/17/17 Bifidobacterium Infantis [Align] 4 mg PO DAILY cap 11/17/17 Levofloxacin [Levaquin] 250 mg PO DAILY #10 tablet 11/17/17 Methylprednisolone [Medrol Dose Gómez] 4 mg PO DAILY 6 Days #21 tab 11/17/17 Metoprolol Tartrate [Lopressor] 50 mg PO BID #60 tab 11/17/17 guaiFENesin ER TAB [Mucinex Tab] 600 mg PO BID tab 11/17/17 Critical Care Note - Critical Care Note Total Time (mins): 52 Comments: CRITICAL EVENT: SYMPTOMATIC AFIB WITH RVR, UNCONTROLLED HTN. CRITICAL FINDINGS: BNP 611, AFIB WITH RVR 140-150, BP >200/100 CRITICAL ACTIONS: ADMINISTRATION OF IV CARDIZEM AND IV CARDIZEM DRIP, CONSULTATION FOR ADMISSION
--- NOTE | 2018-01-19 14:24 | RAD ---
Procedure: XR CHEST 1 VIEW Exam Date: 01/19/2018 Ordering Provider: Selina Dougherty Clinical Indication: dizziness Comparison: 11/17/2017 Findings: Cardiomediastinal silhouette is unremarkable. Aortic calcification. No focal lung consolidation. 1.4 cm nodule in the left upper lobe redemonstrated. Bilateral nipple shadows present. Question a new 9 mm nodule in the right midlung. No pleural effusions. No pneumothorax. No acute osseous abnormalities. Impression: 1. No acute abnormalities in the chest. 2. 1.4 cm nodule in the left upper lobe similar to prior. 3. Question a new 9 mm nodule in the right midlung. This can be further evaluated with CT chest when clinically appropriate. Electronically signed by: Tae Obando MD 01/19/2018 2:22 PM CDT
[2018-01-19] MEDS ORDERED: METOPROLOL TARTRATE 50 MG TAB PO ONE (16:53)
--- NOTE | 2018-01-19 17:06 | HP ---
SUPERVISING PHYSICIAN: Bala Head M.D. CHIEF COMPLAINT: Dizziness and palpitations. HISTORY OF PRESENT ILLNESS: This is a 73 year-old female with a history of atrial fibrillation in the past for which she takes Warfarin, who came to the Emergency Room around 1:30 this afternoon with complaints of dizziness. She states that she has had the dizziness the past 3 days or so and in the Emergency Room she was noted to have a rapid heart rate. A 12-lead EKG was done which showed atrial fibrillation with rapid ventricular response. At that time, Dr. Dougherty gave her 15 mg of Diltiazem and put her on a Cardizem drip. The patient's heart rate improved to the 70s and in fact she cardioverted to sinus rhythm at that time. Initially she was going to stay on the Cardizem drip , however given the stable rate and conversion to sinus rhythm this was discontinued and she was given a dose of p.o. Lopressor. She does take 25 mg p.o. b.i.d. of the Toprol, but she was given a 50 mg tablet due to the fact that her blood pressure was also elevated. Other than the elevated heart rate, she denied any chest pain or shortness of breath. Her labs were done as well and her CBC was unremarkable. Coagulations showed an INR of 1.97 but as stated before, she is on Warfarin. Her chemistry was pretty much unremarkable and looking at her BNP it was elevated at 611, and CK-MB was 5.7. She had a chest x -ray which did not show any acute cardiopulmonary process, but did note some nodules which may need to be followed-up with CT scan in the future. PAST MEDICAL HISTORY: 1. Hypertension. 2. Parkinson's disease. 3. Atrial fibrillation. 4. Restless leg syndrome. 5. Depression. 6. Chronic obstructive pulmonary disease. PAST SURGICAL HISTORY: 1. Cholecystectomy. 2. Hysterectomy. 3. Left breast tumor removal. 4. Left foot surgery. HOME MEDICATIONS: 1. Aspirin 81 mg p.o. daily. 2. Sinemet 25/250 one tab p.o. t.i.d. 3. Lisinopril HCTZ 1/2 tab p.o. daily. 4. Melatonin 10 mg p.o. at bedtime. 5. Metoprolol 25 mg p.o. b.i.d. 6. Multivitamin 1 tab p.o. daily. 7. Requip 0.25 mg p.o. at bedtime. 8. Zoloft 25 mg p.o. at bedtime. 9. Warfarin 7.5 mg p.o. at bedtime. ALLERGIES: NKA FAMILY HISTORY: Father and mother are apparently both from sudden cardiac . SOCIAL HISTORY: The patient is . Lives to herself. No smoking. No alcohol. No illicit drugs. REVIEW OF SYSTEMS: CONSTITUTIONAL: No fever or chills. No recent weight loss or weight gain. HEENT: No headaches, vision changes, ear pain, nasal congestion or throat pain. RESPIRATORY: No cough, shortness of breath or chest pain.. CARDIOVASCULAR: No chest pain. Positive for palpitations. No peripheral edema. GASTROINTESTINAL: No nausea or vomiting, diarrhea, constipation or abdominal pain. GENITOURINARY: No dysuria, frequency or flank pain. HEMATOLOGIC: Positive for easy bruising. No transfusion reaction. ENDOCRINE: No polydipsia, polyuria or polyphagia. No heat or cold intolerance. MUSCULOSKELETAL: No back pain, joint pain or joint swelling. NEUROLOGIC: Positive for dizziness. No paresthesias. No seizures. PHYSICAL EXAMINATION: VITAL SIGNS: Blood pressure 170/80, heart rate 52, respiratory rate 18, temperature 98.4, oxygen saturation 98%. GENERAL: Ms. Marsh is a 73 year-old female who is in no severe distress at this time. HEENT: Head is normocephalic and atraumatic. Eyes: Pupil are equal and reactive. Nose: No drainage. Throat: Moist mucosa. NECK: Supple. Midline trachea. No jugular venous distention. CHEST: Symmetrical with equal rise and fall of the chest with inspiration and expiration. CARDIOVASCULAR: Regular rate and rhythm. Normal S1 and S2. ABDOMEN: Soft. Positive bowel sounds. No tenderness to palpation. No organomegaly. GENITOURINARY: Exam is deferred. EXTREMITIES: Lower extremities with no edema. 2+ pulses. Capillary refill is less than 2 seconds. NEUROLOGIC: The patient is alert and oriented. Moves all extremities. Extraocular movements are intact. LABORATORY: Labs and films as discussed in History of Present Illness. ASSESSMENT: 1. Atrial fibrillation with rapid ventricular response. 2. Hypertension. 3. Coumadin coagulopathy with a subtherapeutic INR. PLAN: Given the fact that she has already cardioverted and has a stable rate, will continue with the p.o. Metoprolol. Will continue to monitor this. If she remains stable overnight, will discharge on the current medications. Her INR is barely subtherapeutic so I will resume her normal medications and inform her of the goal of INR of 2 to 3. She can followup as an outpatient on dosage adjustments on that. Will repeat her labs in the morning as well to ensure that they remain stable. #[id number] [facility]
[2018-01-19] MEDS ORDERED: NITROGLYCERIN 0.4 MG 25 EA TAB SL PRN (19:09)
[2018-01-19] MEDS ORDERED: ACETAMINOPHEN 325 MG TAB PO PRN (19:09)
[2018-01-19] MEDS ORDERED: MORPHINE SULFATE INJ 10 MG/ML VIAL IV PRN (19:09)
[2018-01-19] MEDS ORDERED: IV SET AND CAP CHANGE INJ INJ SCH (19:30)
[2018-01-19] MEDS ORDERED: METOPROLOL TARTRATE 25 MG TAB ONE (19:44)
[2018-01-19] MEDS ORDERED: WARFARIN SODIUM 2.5 MG TAB ONE (19:45)
[2018-01-19] MEDS ORDERED: SERTRALINE HCL 50 MG TAB ONE (19:45)
[2018-01-19] MEDS ORDERED: WARFARIN SODIUM 5 MG TAB ONE (19:45)
[2018-01-19] MEDS: CARBIDOPA PO SCH (20:37)
[2018-01-19] MEDS: LEVODOPA PO SCH (20:37)
[2018-01-19] MEDS: METOPROLOL TARTRATE 50 MG TAB PO SCH (20:40)
[2018-01-19] MEDS: SODIUM CHLORIDE 0.9% (FLUSH) 10 ML SYG IV SCH (20:41)
[2018-01-19] MEDS ORDERED: NON-FORMULARY MEDICATION 1 EA MIS (Melatonin [Melatonin] 10 MG) PO SCH (21:00)
[2018-01-19] MEDS ORDERED: NON-FORMULARY MEDICATION 1 EA MIS (Sertraline Hcl [Zoloft] 25 MG) PO SCH (21:00)
[2018-01-19] MEDS ORDERED: WARFARIN SODIUM 7.5 MG PO SCH (21:00)
[2018-01-20 05:33] VITALS: BP 137/75; TEMP 98.3
[2018-01-20 07:25] VITALS: O2SAT 99
[2018-01-20] MEDS ORDERED: ASPIRIN TABLET 325 MG TAB PO SCH (09:00)
[2018-01-20] MEDS ORDERED: MULTIPLE VITAMIN 1 EA TAB PO SCH (09:00)
[2018-01-20] MEDS: SODIUM CHLORIDE 0.9% (FLUSH) 10 ML SYG IV SCH (09:04)
[2018-01-20] MEDS: METOPROLOL TARTRATE 50 MG TAB PO SCH (09:04)
[2018-01-20] MEDS: LEVODOPA PO SCH (09:11)
[2018-01-20] MEDS: CARBIDOPA PO SCH (09:11)
--- NOTE | 2018-01-20 11:12 | DS ---
SUPERVISING PHYSICIAN: Bala Head MD ADMISSION DIAGNOSIS: 1. Atrial fibrillation with rapid ventricular response. 2. Hypertension. 3. Coumadin coagulopathy. DISCHARGE DIAGNOSIS: 1. Atrial fibrillation with rapid ventricular response. 2. Hypertension. 3. Coumadin coagulopathy. HOSPITAL COURSE: Ms. Marsh is a 73-year-old female who came to the Emergency Room due to dizziness. Her workup in the Emergency Room was consistent with atrial fibrillation with rapid ventricular response. In the Emergency Room, she was given 15 mg bolus dose of diltiazem and placed on a Cardizem drip. Her heart rate improved to the 70s and eventually she actually cardioverted back to normal sinus rhythm. At that point, she was taken off the Cardizem drip and given a dose of p.o. Lopressor. Apparently, she takes 25 mg p.o. b.i.d. of Lopressor at home, but was given 50 mg tablet here. She tolerated this fairly well and was placed on the Unit for observation overnight. Overnight, her cardiac rhythm has remained normal. She is in a normal sinus rhythm with a controlled rate. For this reason, she will be discharged home in stable condition. However, I did discuss with her her medications. I do not want to adjust her metoprolol until she is seen by Dr. Serra. She has not been seen by Dr. Serra in a couple of years, so I did contact his office to make an appointment. They have made the appointment for 02/20/18 at 12:20 here in [place]. I am not adjusting medications. Diet is not changing. Activity is as tolerated. I did tell her that if she has any complications prior to the appointment that she can contact their office and provided the phone number so they can get her in earlier. #[id number] [facility]
[2018-01-20] MEDS ORDERED: WARFARIN SODIUM 5 MG TAB PO SCH (21:00)
[2018-01-20] MEDS ORDERED: SERTRALINE HCL 50 MG TAB PO SCH (21:00)
== END 2018-01-20 10:28 | disposition home health service (06) ==
LOC: ER 13:30 → INTOOBSV 17:04 → MS 17:04
PROVIDERS: ADMIT Nurse Practitioner; ATTEND Nurse Practitioner
DX: I48.91 Unspecified atrial fibrillation (principal); I10 Essential (primary) hypertension; D68.8 Other specified coagulation defects; K21.9 Gastro-esophageal reflux disease without esophagitis; I44.1 Atrioventricular block, second degree; I49.3 Ventricular premature depolarization; R91.1 Solitary pulmonary nodule; G20 Parkinson's disease; F32.9 Major depressive disorder, single episode, unspecified; J44.9 Chronic obstructive pulmonary disease, unspecified; G25.81 Restless legs syndrome; Z79.01 Long term (current) use of anticoagulants; Z79.82 Long term (current) use of aspirin; Z79.899 Other long term (current) drug therapy
CPT/HCPCS: J7050; 80048 ×2; 82553 ×2; 80061; 36415 ×3; 82550 ×2; 85025 ×2; 85730; 85610 ×2; 84484 ×3; 80076; 83735; 83880; 71045; 99291; 93005 ×4; G0378; 96365; 96366

== ENCOUNTER → 2018-02-27 | Outpatient (CLI) | payer MEDICARE, OTHER | LOC: LAB.O 10:58 | PROVIDERS: ATTEND Nurse Practitioner Family | DX: D50.0 Iron deficiency anemia secondary to blood loss (chronic) (principal); I95.2 Hypotension due to drugs ==